=== PATIENT | female | born 1945 | race Caucasian/White ===

== ENCOUNTER 2019-01-03 22:37 | Inpatient (IN) ==
--- NOTE | 2019-01-03 22:45 | ERNOTE ---
Dyspnea - General Presenting Symptoms: shortness of breath Time Seen by Provider: 01/03/19 22:42 Source: EMS Exam Limitations: clinical condition - Immun/Allergies/Home Medications Allergies/Adverse Reactions: Allergies Sulfa (Sulfonamide Antibiotics) Allergy (Unknown, Verified 01/03/19 23:13) - History of Present Illness Narrative: Pt brought in by EMS with respiratory failure. She has been worsening since she got out of a long-term 3 days ago, she states she was not able to go home because she has black mold in her home so she came to stay with a caregiver in town. She was weak and sweaty this afternoon and slipped off the toilet and was unable to get up. She believes she was without oxygen for approx 25-30 minutes. Upon arrival EMS state she had SaO2 of 70%. We applied O2 at 8l oxy mask. Upon receiving ABG's and finding her CO2 elevated we switched to bipap. Severity: moderate Treatment [employer] B[employer]ER: paramedics, oxygen Initiating event: Reports: unknown Frequency of episodes: Reports: frequent episodes Modifying Factors - (Improves): Reports: oxygen, rest Modifying Factors (Worsens): Reports: activity Associated Symptoms-Dyspnea: Reports: sweating, ankle/leg swelling Prior Treatment: Reports: recently seen, treated by physician, recently hospitalized Review of Systems - Review of Systems Constitutional: Present: recent illness, chills, fatigue, malaise EYE: Absent: vision changes ENT: Absent: nose congestion, nasal drainage Respiratory: Present: shortness of breath, orthopnea Cardiology: Present: edema. Absent: chest pain Gastrointestinal/Abdominal: Absent: nausea, vomiting Genitourinary: Absent: frequency, pain Musculoskeletal: Absent: back pain, muscle pain Skin: Absent: rash Neurological: Absent: weakness, numbness Endocrine: Present: excessive sweating, flushing Hematologic/Lymphatic: Absent: easy bruising Medical History (Updated 01/03/19 @ 23:09 by Jenny Sanchez RN) COPD (chronic obstructive pulmonary disease) Diabetes HTN (hypertension) Sleep apnea Family History: Family History (Updated 01/03/19 @ 23:09 by Jenny Sanchez RN) Other Family history non-contributory Social History: Preferred Language Tamaz[place] No Social History Section defined Physical Exam - Physical Exam General Appearance: Present: wd/wn, alert, mild distress Head Exam: Present: normal inspection, no evidence of injury Ears, Nose, Throat: Present: normal ENT inspection Neck: Present: normal inspection, nontender, supple Respiratory: Present: accessory muscle use, decreased breath sounds, crackles - RLL Cardiovascular/Chest: Present: regular rate, rhythm, no murmur Gastrointestinal/Abdominal: Present: normal bowel sounds, nontender, nondistended Extremity Exam: Present: extremity edema - +2 Neurological Exam: Present: alert, oriented, no motor/sensory deficits Skin Exam: Present: warm/dry Progress - Results and Orders Patient's Lab Results:: I have reviewed the patient's lab results. Results and Orders: Laboratory Tests 01/03/19 01/03/19 01/03/19 22:43 23:06 23:10 WBC 18.1 H Hgb 9.3 L Hct 31.3 L Plt Count 307 Neutrophils % 80.8 H D-Dimer pCO2 57.6 H pO2 67.5 L Total CO2 27.1 H ABG pH 7.26 L ABG O2 Sat (Measured) 90.3 L Sodium 141 Potassium 4.4 Chloride 102 Carbon Dioxide 25.9 BUN 27 H Creatinine 1.35 Est GFR (Non-Af Amer) 41 L D Random Glucose 331 H Calcium 8.8 AST 14 ALT 18 L Troponin I 0.069 B-Natriuretic Peptide 833 H Urine Color Urine Appearance Urine pH Ur Specific [place] Urine Glucose (UA) Urine Blood Urine Nitrate Ur Leukocyte Esterase 01/03/19 01/04/19 01/04/19 23:10 00:24 00:36 WBC Hgb Hct Plt Count Neutrophils % D-Dimer 2.16 H pCO2 57.4 H pO2 71.0 L Total CO2 28.4 H ABG pH 7.29 L ABG O2 Sat (Measured) 92.0 L Sodium Potassium Chloride Carbon Dioxide BUN Creatinine Est GFR (Non-Af Amer) Random Glucose Calcium AST ALT Troponin I B-Natriuretic Peptide Urine Color Yellow Urine Appearance Clear Urine pH 5.5 Ur Specific [place] 1.025 Urine Glucose (UA) 500 H Urine Blood Negative Urine Nitrate Negative Ur Leukocyte Esterase Negative - Vital Signs Patient's Vital Signs:: I have reviewed the patient's vital signs. - X-Ray X-Ray #1 X-Ray: chest Interpretation: Interp. by me X-ray Comments: RLL infiltrate and general mild pulmonary edema. - Progress/Reassessment Progress Note-Subjective: 01/03/19 23:45 received notice of patients elevated D-dimer. Pt's GFR is low and dx's of pneumonia and CHF more likely than PE. It would be risky to attempt to take the patient to CT on BIPAP as well. I will hold off on chest CTA for the time being. 01/04/19 01:[address] Gray about admission, he agrees with admission to the [facility]. Departure Clinical Impression: Pneumonia Qualifiers: Pneumonia type: due to unspecified organism Laterality: right Lung location: lower lobe of lung Qualified Code(s): J18.1 - Lobar pneumonia, unspecified organism CHF (congestive heart failure) Qualifiers: Heart failure type: systolic Heart failure chronicity: acute on chronic Qualified Code(s): I50.23 - Acute on chronic systolic (congestive) heart failure COPD (chronic obstructive pulmonary disease) Qualifiers: COPD type: COPD with acute lower respiratory infection Qualified Code(s): J44.0 - Chronic obstructive pulmonary disease with acute lower respiratory infection - Departure Disposition: Still a patient Condition: Fair
[2019-01-03 23:13] LABS: Hematocrit 31.3 % (37.0-47.0); Hemoglobin 9.3 gm/dL (12.5-16.0); Mean Cell Volume 91.5 fl (78-100); Mean Corpuscular Hemoglobin 27.2 pg (27-31); Mean Corpuscular Hgb Conc 29.7 g/dl (32-36); Mean Platelet Volume 9.9 fl (8-12.5); NRBC# 0.1 k/mm3 (0-1); Neutrophil # 14.6 K/mm3 (1.3-6.0); Neutrophil % 80.8 % (42-75.0); Platelet Count 307 K/mm3 (150-450); Red Blood Count 3.42 M/mm3 (4.2-5.4); Red Cell Distribution Width 16.3 % (11.5-14.0); White Blood Count 18.1 K/mm3 (4.0-10.5)
[2019-01-03 23:31] LABS: Troponin I 0.069 ng/mL (0.00-0.10)
[2019-01-03 23:33] LABS: Albumin * 2.9 gm/dl (3.4-5.0); Anion Gap 17.5 mmol/L (6.8-13.8); Bilirubin, Total 0.2 mg/dL (0.0-1.1); Ca. Corrected For Albumin 9.4 mg/dL (8.4-10.2); Calcium * 8.8 mg/dL (7.9-10.9); Carbon Dioxide 25.9 mmol/L (24-32.6); Potassium 4.4 mmol/L (3.4-4.6); Total Protein 7.3 gm/dL (6.2-8.2)
[2019-01-04 00:31] LABS: Urine Bilirubin Negative (NEGATIVE); Urine Blood Negative /ul (NEGATIVE); Urine Ketone Negative (NEGATIVE); Urine Nitrite Negative (NEGATIVE); Urine Protein 30 mg/dL (NEGATIVE); Urine Specific Gravity 1.025 SP.GR. (1.005-1.010); Urine Urobilinogen Normal (NORMAL); Urine pH 5.5 pH (5.0-7.0)
[2019-01-04 00:42] LABS: Urine Appearance Clear (CLEAR); Urine Color Yellow; Urine RBC None Seen /hpf (0-5); Urine WBC None Seen /hpf (0-5)
[2019-01-04 00:43] LABS: Urine Bacteria TRACE; Urine Hyaline Cast 0-5 /LPF
[2019-01-04] MEDS ORDERED: FUROSEMIDE 10 MG/ML VIAL IV ONE ×2 (00:51→08:26)
[2019-01-04] MEDS ORDERED: DEXTROSE 5 % IN WATER 100 ML BAG IV ONE (02:02)
[2019-01-04] MEDS ORDERED: NORMAL SALINE 1,000 ML IV PRN (08:40)
[2019-01-04] MEDS ORDERED: NORMAL SALINE 500 ML IV PRN (08:40)
[2019-01-04] MEDS ORDERED: NORMAL SALINE 500 ML IV ONE (08:42)
[2019-01-04 08:47] LABS: Iron 28 mcg/dL (35-120); Transferrin Sat. (% Sat.) 9 % (15-55)
[2019-01-04] MEDS ORDERED: ENOXAPARIN SODIUM 40 MG/0.4 ML SYRG SC SCH (09:00)
--- NOTE | 2019-01-04 09:27 | HP ---
Chief Complaint - Chief Complaint Date of Service: 01/04/19 Time of Service: 07:30 Chief Complaint: Obtunded mentation, respiratory failure History of Present Illness: Jazlyn Ramirez is a 73 yo morbidly obese (BMI 44.0) [facility]. Admitted through ER at 2:00 this morning for obtunded mentation, respiratory failure with hypercarbia and acidosis, and possibly pneumonia. She has a long-standing history of type 2 diabetes and is insulin-dependent. She also has renal insufficiency with an EGFR of 41 on admission. She is anemic with a hemoglobin of 9.1 g and a leukocytosis of 18,000 on her blood count. Chest x-ray shows cardiomegaly, pulmonary edema, and pneumonia versus atelectasis in the right lower lobe. Her d-dimer was positive at 2.3. Blood sugar on admission was 331. She was placed on BiPAP in the emergency room and she started improving her mentation about 4:00 this morning. By 7 AM she was fully alert and awake and conversant. Repeat blood gases at 730 this morning showed improvement with a pH now 7.353 and a PCO2 had dropped from 57-51. Her PO2 had improved from 61-73. She was not placed on any anticoagulant therapy from ER and CT of the chest has not been done yet. 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 Smoking Status Former smoker Have you smoked in the past 12 No months Do you dip or chew tobacco No Alcohol Use none Drug Use none No Social History Section defined Review Of Systems (GEN) - Review of Systems Generalized/Overall Review: Present: Malaise EENTM: Present: No Symptoms Reported Respiratory: Present: Shortness of Breath, Other - Tachypnea Cardiac: Present: No Symptoms Reported Abdominal: Present: No Symptoms Reported Genitourinary: Present: No Symptoms Reported Musculoskeletal: Present: No Symptoms Reported Neurological: Present: Numbness, Parasthesia, Tingling, Pre-existing Deficit - In her feet and lower legs. She is complaining of a painful tingling in the right lateral thigh area up to the hip. Skin: Present: No Symptoms Reported Endocrine: Present: Other - Long-standing history of insulin-dependent diabetes Immunizations: IMMUNIZATION HX Immunizations Up to Date Yes History of Influenza Vaccine Yes Hx Pneumococcal Vaccination More Information Required Allergies/Adverse Reactions: Allergies Allergy/AdvReac Type Severity Reaction Status Date / Time Sulfa (Sulfonamide Allergy Unknown Verified 01/03/19 23:13 Antibiotics) Exam - Exam Vital Signs: Vital Signs - Last Taken Temp 36.6 C 01/04/19 07:30 Pulse 75 01/04/19 07:30 Resp 20 01/04/19 07:30 BP 127/95 H 01/04/19 07:30 Pulse Ox 98 01/04/19 07:52 Constitutional: Present: Alert, Oriented x3, Cooperative, Well developed, Well nourished, Morbidly obese ENT Exam: Present: normal ENT inspection, hearing grossly normal, pharynx normal, TMs normal Eye Exam: bilateral eye: normal inspection, PERRL, EOMI Neck: Present: non-tender, full range of motion, supple, normal inspection, trachea midline, limited range of motion Back Exam: Present: normal inspection, no CVA tenderness, no vertebral tenderness Breasts: Present: Exam deferred Respiratory: Present: lungs clear, respiratory distress - With tachypnea. She has required CPAP through the night to improve., decreased breath sounds, accessory muscle use, expiration (prolonged), other - Diminished breath sounds in the right lower chest consistent with the radiographic findings of atelectasis versus pneumonia in the right lower lobe. Cardiovascular/Chest: Present: normal peripheral pulses, regular rate, rhythm, no chest tenderness, edema - Pitting in the lower legs. Positive HJR at 45 degrees. Peripheral Pulses: carotid (R): 2+, carotid (L): 2+, radial (R): 2+, radial (L): 2+ Abdomen: Present: Normal bowel sounds, soft, nontender, nondistended, no rebound tenderness, no hepatospenomegaly, no masses, obese /Rectal: Present: Exam deferred Extremity: Present: normal range of motion Skin Exam: Present: pallor Lymphatic: Present: no adenopathy Neurologic: Present: ruffler II-XII nml as tested, sensory deficit - In the lower extremities and feet.. Absent: motor weakness Appearance: Present: appropriate appearance, appropriate insight, neat, impaired recent memory - She is nearly amnestic about the events that happened last night. Her memory is normal this morning however. Eye contact: Present: cooperative, good eye contact, normal speech Thoughts: Present: normal thought pattern, no apparent hallucination Diagnostic Studies: Abnormal Lab Results 01/03/19 01/03/19 01/03/19 Range/Units 22:43 23:06 23:06 WBC 18.1 H (4.0-10.5) K/mm3 RBC 3.42 L (4.2-5.4) M/mm3 Hgb 9.3 L (12.5-16.0) gm/dL Hct 31.3 L (37.0-47.0) % MCHC 29.7 L (32-36) g/dl RDW 16.3 H (11.5-14.0) % Immature Gran % (Auto) 1.80 H (0.001-0.429) % Immature Gran # (Auto) 0.33 H (0.000-0.0310) K/mm3 Neutrophils % 80.8 H (42-75.0) % Lymphocytes % 8.2 L (20-51) % Neutrophils # 14.6 H (1.3-6.0) K/mm3 Lymphocytes # 1.49 L (1.5-3.5) k/mm3 Monocytes # 1.5 H (0.0-1.0) k/mm3 Percent Retic (0.4-1.8) % Immature Retic Fraction (3.0-15.9) % Retic Hgb Content (29-35) pg D-Dimer (0.19-0.49) ug/mL pCO2 57.6 H (32.0-45.0) mmHg pO2 67.5 L (83.0-108.0) mmHg Total CO2 27.1 H (19.0-24.0) mmol/L Base Excess -2.2 L (-2.0-3.0) mmol/L ABG pH 7.26 L (7.35-7.45) ABG O2 Sat (Measured) 90.3 L (94.0-98.0) % Plasma Sodium (130-142) mmol/L Anion Gap (6.8-13.8) mmol/L BUN (3-23) mg/dL Est GFR (Non-Af Amer) (60-130) mL/min Random Glucose (70-110) mg/dL Lactic Acid, Venous 3.7 H* (0.4-2.0) mmol/L Iron (35-120) mcg/dL Transferrin % Sat (15-55) % ALT (19-67) U/L B-Natriuretic Peptide (5-325) pg/mL Albumin (3.4-5.0) gm/dl Urine Protein (NEGATIVE) mg/dL Urine Glucose (UA) (NEGATIVE) mg/dL Hyaline Casts (NONE) /LPF 01/03/19 01/03/19 01/03/19 Range/Units 23:10 23:10 23:10 WBC (4.0-10.5) K/mm3 RBC (4.2-5.4) M/mm3 Hgb (12.5-16.0) gm/dL Hct (37.0-47.0) % MCHC (32-36) g/dl RDW (11.5-14.0) % Immature Gran % (Auto) (0.001-0.429) % Immature Gran # (Auto) (0.000-0.0310) K/mm3 Neutrophils % (42-75.0) % Lymphocytes % (20-51) % Neutrophils # (1.3-6.0) K/mm3 Lymphocytes # (1.5-3.5) k/mm3 Monocytes # (0.0-1.0) k/mm3 Percent Retic (0.4-1.8) % Immature Retic Fraction (3.0-15.9) % Retic Hgb Content (29-35) pg D-Dimer 2.16 H (0.19-0.49) ug/mL pCO2 (32.0-45.0) mmHg pO2 (83.0-108.0) mmHg Total CO2 (19.0-24.0) mmol/L Base Excess (-2.0-3.0) mmol/L ABG pH (7.35-7.45) ABG O2 Sat (Measured) (94.0-98.0) % Plasma Sodium 145 H (130-142) mmol/L Anion Gap 17.5 H (6.8-13.8) mmol/L BUN 27 H (3-23) mg/dL Est GFR (Non-Af Amer) 41 L D (60-130) mL/min Random Glucose 331 H (70-110) mg/dL Lactic Acid, Venous (0.4-2.0) mmol/L Iron 28 L (35-120) mcg/dL Transferrin % Sat 9 L (15-55) % ALT 18 L (19-67) U/L B-Natriuretic Peptide 833 H (5-325) pg/mL Albumin 2.9 L (3.4-5.0) gm/dl Urine Protein (NEGATIVE) mg/dL Urine Glucose (UA) (NEGATIVE) mg/dL Hyaline Casts (NONE) /LPF 01/04/19 01/04/19 01/04/19 Range/Units 00:24 00:36 07:35 WBC (4.0-10.5) K/mm3 RBC (4.2-5.4) M/mm3 Hgb (12.5-16.0) gm/dL Hct (37.0-47.0) % MCHC (32-36) g/dl RDW (11.5-14.0) % Immature Gran % (Auto) (0.001-0.429) % Immature Gran # (Auto) (0.000-0.0310) K/mm3 Neutrophils % (42-75.0) % Lymphocytes % (20-51) % Neutrophils # (1.3-6.0) K/mm3 Lymphocytes # (1.5-3.5) k/mm3 Monocytes # (0.0-1.0) k/mm3 Percent Retic (0.4-1.8) % Immature Retic Fraction (3.0-15.9) % Retic Hgb Content (29-35) pg D-Dimer (0.19-0.49) ug/mL pCO2 57.4 H 51.6 H (32.0-45.0) mmHg pO2 71.0 L (83.0-108.0) mmHg Total CO2 28.4 H 29.6 H (19.0-24.0) mmol/L Base Excess (-2.0-3.0) mmol/L ABG pH 7.29 L (7.35-7.45) ABG O2 Sat (Measured) 92.0 L (94.0-98.0) % Plasma Sodium (130-142) mmol/L Anion Gap (6.8-13.8) mmol/L BUN (3-23) mg/dL Est GFR (Non-Af Amer) (60-130) mL/min Random Glucose (70-110) mg/dL Lactic Acid, Venous (0.4-2.0) mmol/L Iron (35-120) mcg/dL Transferrin % Sat (15-55) % ALT (19-67) U/L B-Natriuretic Peptide (5-325) pg/mL Albumin (3.4-5.0) gm/dl Urine Protein 30 H (NEGATIVE) mg/dL Urine Glucose (UA) 500 H (NEGATIVE) mg/dL Hyaline Casts 0-5 H (NONE) /LPF 01/04/19 Range/Units 08:38 WBC (4.0-10.5) K/mm3 RBC (4.2-5.4) M/mm3 Hgb (12.5-16.0) gm/dL Hct (37.0-47.0) % MCHC (32-36) g/dl RDW (11.5-14.0) % Immature Gran % (Auto) (0.001-0.429) % Immature Gran # (Auto) (0.000-0.0310) K/mm3 Neutrophils % (42-75.0) % Lymphocytes % (20-51) % Neutrophils # (1.3-6.0) K/mm3 Lymphocytes # (1.5-3.5) k/mm3 Monocytes # (0.0-1.0) k/mm3 Percent Retic 2.4 H (0.4-1.8) % Immature Retic Fraction 33.8 H (3.0-15.9) % Retic Hgb Content 27.6 L (29-35) pg D-Dimer (0.19-0.49) ug/mL pCO2 (32.0-45.0) mmHg pO2 (83.0-108.0) mmHg Total CO2 (19.0-24.0) mmol/L Base Excess (-2.0-3.0) mmol/L ABG pH (7.35-7.45) ABG O2 Sat (Measured) (94.0-98.0) % Plasma Sodium (130-142) mmol/L Anion Gap (6.8-13.8) mmol/L BUN (3-23) mg/dL Est GFR (Non-Af Amer) (60-130) mL/min Random Glucose (70-110) mg/dL Lactic Acid, Venous (0.4-2.0) mmol/L Iron (35-120) mcg/dL Transferrin % Sat (15-55) % ALT (19-67) U/L B-Natriuretic Peptide (5-325) pg/mL Albumin (3.4-5.0) gm/dl Urine Protein (NEGATIVE) mg/dL Urine Glucose (UA) (NEGATIVE) mg/dL Hyaline Casts (NONE) /LPF Laboratory Results WBC 18.1 K/mm3 (4.0-10.5) H 01/03/19 22:43 RBC 3.42 M/mm3 (4.2-5.4) L 01/03/19 22:43 Hgb 9.3 gm/dL (12.5-16.0) L 01/03/19 22:43 Hct 31.3 % (37.0-47.0) L 01/03/19 22:43 MCV 91.5 fl (78-100) 01/03/19 22:43 MCH 27.2 pg (27-31) 01/03/19 22:43 MCHC 29.7 g/dl (32-36) L 01/03/19 22:43 RDW 16.3 % (11.5-14.0) H 01/03/19 22:43 Plt Count 307 K/mm3 (150-450) 01/03/19 22:43 MPV 9.9 fl (8-12.5) 01/03/19 22:43 Immature Gran % (Auto) 1.80 % (0.001-0.429) H 01/03/19 22:43 Immature Gran # (Auto) 0.33 K/mm3 (0.000-0.0310) H 01/03/19 22:43 80.8 % (42-75.0) H 01/03/19 22:43 8.2 % (20-51) L 01/03/19 22:43 8.2 % (0.0-9) 01/03/19 22:43 0.7 % (0.0-3.0) 01/03/19 22:43 0.3 % (0.0-1.0) 01/03/19 22:43 Nucleated RBC % 0.1 k/mm3 (0-1) 01/03/19 22:43 14.6 K/mm3 (1.3-6.0) H 01/03/19 22:43 1.49 k/mm3 (1.5-3.5) L 01/03/19 22:43 1.5 k/mm3 (0.0-1.0) H 01/03/19 22:43 0.1 k/mm3 (0.0-0.7) 01/03/19 22:43 Absolute Basophils 0.1 k/mm3 (0.0-0.1) 01/03/19 22:43 Absolute Retic 0.0874 01/04/19 08:38 Percent Retic 2.4 % (0.4-1.8) H 01/04/19 08:38 Immature Retic Fraction 33.8 % (3.0-15.9) H 01/04/19 08:38 Retic Hgb Content 27.6 pg (29-35) L 01/04/19 08:38 2.16 ug/mL (0.19-0.49) H 01/03/19 23:10 pCO2 51.6 mmHg (32.0-45.0) H 01/04/19 07:35 pO2 84.8 mmHg (83.0-108.0) 01/04/19 07:35 HCO3 28.0 mmol/L (21.0-28.0) 01/04/19 07:35 Total CO2 29.6 mmol/L (19.0-24.0) H 01/04/19 07:35 Base Excess 1.8 mmol/L (-2.0-3.0) 01/04/19 07:35 ABG pH 7.35 (7.35-7.45) 01/04/19 07:35 ABG O2 Sat (Measured) 95.8 % (94.0-98.0) 01/04/19 07:35 Sodium 141 mmol/L (132-142) 01/03/19 23:10 145 mmol/L (130-142) H 01/03/19 23:10 Potassium 4.4 mmol/L (3.4-4.6) 01/03/19 23:10 Chloride 102 mmol/L (97-106) 01/03/19 23:10 Carbon Dioxide 25.9 mmol/L (24-32.6) 01/03/19 23:10 17.5 mmol/L (6.8-13.8) H 01/03/19 23:10 BUN 27 mg/dL (3-23) H 01/03/19 23:10 1.35 mg/dL (0.4-1.4) 01/03/19 23:10 Est GFR (Non-Af Amer) 41 mL/min (60-130) L D 01/03/19 23:10 20.0 (9.0-21.6) 01/03/19 23:10 331 mg/dL (70-110) H 01/03/19 23:10 1.2 mmol/L (0.4-2.0) 01/04/19 04:37 Calcium 8.8 mg/dL (7.9-10.9) 01/03/19 23:10 Calcium Adj for Albumin 9.4 mg/dL (8.4-10.2) 01/03/19 23:10 Iron 28 mcg/dL (35-120) L 01/03/19 23:10 TIBC 309 mcg/dL (260-445) 01/03/19 23:10 Transferrin % Sat 9 % (15-55) L 01/03/19 23:10 0.2 mg/dL (0.0-1.1) 01/03/19 23:10 AST 14 U/L (0-48) 01/03/19 23:10 ALT 18 U/L (19-67) L 01/03/19 23:10 85 U/L (50-170) 01/03/19 23:10 0.069 ng/mL (0.00-0.10) 01/03/19 23:10 B-Natriuretic Peptide 833 pg/mL (5-325) H 01/03/19 23:10 7.3 gm/dL (6.2-8.2) 01/03/19 23:10 2.9 gm/dl (3.4-5.0) L 01/03/19 23:10 Yellow 01/04/19 00:24 Clear (CLEAR) 01/04/19 00:24 5.5 pH (5.0-7.0) 01/04/19 00:24 Ur Specific [place] 1.025 SP.GR. (1.005-1.010) 01/04/19 00:24 30 mg/dL (NEGATIVE) H 01/04/19 00:24 500 mg/dL (NEGATIVE) H 01/04/19 00:24 Negative mg/dL (NEGATIVE) 01/04/19 00:24 Negative /ul (NEGATIVE) 01/04/19:24 Negative (NEGATIVE) 01/04/19:24 Negative mg/dl (NEGATIVE) 01/04/19 00:24 Prot Sulfosalicylic Acd 1+ mg/dL (0) 01/04/19:24 Normal EU/dl (NORMAL) 01/04/19:24 Ur Leukocyte Esterase Negative /ul (NEGATIVE) 01/04/19 00:24 None seen /hpf (0-5) 01/04/19 00:24 None seen /hpf (0-5) 01/04/19 00:24 Ur Epithelial Cells Trace /hpf (0-5) 01/04/19:24 Trace (NONE) 01/04/19 00:24 Hyaline Casts 0-5 /LPF (NONE) H 01/04/19 00:24 No culture indicated 01/04/19 00:24 Assessment/Plan - Narrative Narrative: The cause of her renal insufficiency which is CKD stage IIIb at EGFR of 41 is most likely from her uncontrolled diabetes. The cause of her anemia is probably from the renal insufficiency. Her MCV is normal but her RDW is elevated. Iron studies are pending. Because she has a positive d-dimer and acute respiratory failure PE must be ruled out. She is not on any anticoagulants therapy. I have ordered a CTA of the chest to rule out PE and also to evaluate the atelectasis in the right lower lung to see if pneumonia is present. She has cardiomegaly on her chest x-ray and so an echocardiogram is ordered as it may relate to some of her respiratory failure. She will be started on Lovenox therapeutic dosing initially at 40 mg twice daily. Once PE is ruled out then I will reduce it to prophylaxis only. She will be placed on nasal cannula O2 at 3 L and then I will have a heart line put in by anesthesia and recheck blood gases early this afternoon. I will start her on Levemir 20 units subcu and NovoLog 7 units before meals meals. She takes 50 units of Lantus and metformin usually. Anabelle was recently in a assisted in [place] and then left there to come live with a friend here in [place]. She developed respiratory distress last night and came to our hospital. Her fishing floats assembler is Dr. Stuart Davidson and she has a PCP in [place] as well. I will notify them of her status once I have more information. - Assessment/Plan (1) Acute respiratory failure with hypercapnia Problem: Acute (2) Anemia Problem: Acute Qualifiers: Anemia type: unspecified type Qualified Code(s): D64.9 - Anemia, unspecified (3) Type 2 diabetes mellitus Problem: Chronic Qualifiers: Diabetes mellitus intermediate school teacher insulin use: with senior living use Diabetes syeda litus complication status: with kidney complications Diabetes mellitus complication detail: with chronic kidney disease Chronic kidney disease stage: stage 3 (moderate) Qualified Code(s): E11.22 - Type 2 diabetes mellitus with diabetic chronic kidney disease; N18.3 - Chronic kidney disease, stage 3 (modera te); Z79.4 - long term care social worker (current) use of insulin (4) Pulmonary embolus Problem: Suspected Qualifiers: Pulmonary embolism type: unspecified Chronicity: acute Acute cor pulmonale presence: with acute cor pulmonale Qualified Code(s): I26.09 - Other pulmonary embolism with acute cor pulmonale (5) Cardiomegaly Problem: Acute (6) Morbid obesity with BMI of 40.0-44.9, adult Problem: Acute (7) Pneumonia Problem: Suspected Qualifiers: Pneumonia type: due to unspecified organism Laterality: right Lung location: lower lobe of lung Qualified Code(s): J18.1 - Lobar pneumonia, unspecified organism (8) CHF (congestive heart failure) Problem: Acute Qualifiers: Heart failure type: systolic Heart failure chronicity: acute on chronic Qualified Code(s): I50.23 - Acute on chronic systolic (congestive) heart failure (9) COPD (chronic obstructive pulmonary disease) Problem: Chronic Qualifiers: COPD type: COPD with acute lower respiratory infection Qualified Code(s): J44.0 - Chronic obstructive pulmonary disease with acute lower respiratory infection
[2019-01-04] MEDS: INSULIN DETEMIR 100 UNITS/ML VIAL SC SCH (10:13)
[2019-01-04] MEDS: INSULIN ASPART 100 UNITS/ML VIAL SC SCH ×2 (12:22→17:20)
[2019-01-04] MEDS ORDERED: ALBUTEROL SULFATE/IPRATROPIUM 3 ML NEBU IH PRN (13:13)
[2019-01-04] MEDS: TIOTROPIUM BROMIDE 5 CAP INHALER IH SCH (13:53)
[2019-01-04] MEDS: amLODIPine BESYLATE 5 MG TABLET PO SCH (13:55)
[2019-01-04] MEDS: GABAPENTIN 300 MG CAPSULE PO SCH (16:04)
[2019-01-04] MEDS: ACETAMINOPHEN 500 MG TABLET PO PRN (18:37)
[2019-01-04] MEDS: ALPRAZolam 1 MG TABLET PO PRN (20:00)
[2019-01-04] MEDS: traZODone HCL 50 MG TABLET PO SCH (20:00)
[2019-01-05 05:33] LABS: Hematocrit 31.9 % (37.0-47.0); Hemoglobin 9.6 gm/dL (12.5-16.0); Mean Cell Volume 89.4 fl (78-100); Mean Corpuscular Hemoglobin 26.9 pg (27-31); Mean Corpuscular Hgb Conc 30.1 g/dl (32-36); Mean Platelet Volume 9.6 fl (8-12.5); Neutrophil # 7.6 K/mm3 (1.3-6.0); Neutrophil % 74.4 % (42-75.0); Platelet Count 276 K/mm3 (150-450); Red Blood Count 3.57 M/mm3 (4.2-5.4); Red Cell Distribution Width 16.1 % (11.5-14.0); White Blood Count 10.2 K/mm3 (4.0-10.5)
[2019-01-05 05:48] LABS: Albumin * 2.7 gm/dl (3.4-5.0); Anion Gap 10.9 mmol/L (6.8-13.8); BUN/Creatinine Ratio 17.8 (9.0-21.6); Bilirubin, Total 0.3 mg/dL (0.0-1.1); Ca. Corrected For Albumin 9.4 mg/dL (8.4-10.2); Calcium * 8.7 mg/dL (7.9-10.9); Carbon Dioxide 32.5 mmol/L (24-32.6); Potassium 3.4 mmol/L (3.4-4.6)
[2019-01-05] MEDS: PANTOPRAZOLE SODIUM 40 MG TABLET.EC PO SCH (07:27)
[2019-01-05] MEDS: LEVOTHYROXINE SODIUM 112 MCG TABLET PO SCH (07:27)
[2019-01-05] MEDS: INSULIN ASPART 100 UNITS/ML VIAL SC SCH ×3 (07:27→17:19)
--- NOTE | 2019-01-05 09:14 | ECHO ---
This report is available in the EMR
[2019-01-05] MEDS: ESCITALOPRAM OXALATE 10 MG TAB PO SCH (09:42)
[2019-01-05] MEDS: GABAPENTIN 300 MG CAPSULE PO SCH ×3 (09:43→17:19)
[2019-01-05] MEDS: amLODIPine BESYLATE 5 MG TABLET PO SCH (09:43)
[2019-01-05] MEDS: ENOXAPARIN SODIUM 40 MG/0.4 ML SYRG SC SCH (09:44)
[2019-01-05] MEDS: INSULIN DETEMIR 100 UNITS/ML VIAL SC SCH ×2 (09:44→10:47)
[2019-01-05] MEDS: TIOTROPIUM BROMIDE 5 CAP INHALER IH SCH (09:46)
--- NOTE | 2019-01-05 10:10 | PN ---
Subjective - Date and Time Seen Date: 01/05/19 Time: 08:30 Subjective Narrative: Jazlyn Ramirez has been in SCU since admission. She had an uneventful night last night. She is feeling much better this morning and feels rested. She has no complaints of shortness of breath. Nursing has no concerns through the night. Fingerstick blood sugars have been in the 200-225 range. The lab blood sugar this morning was 175 at 06 100. She has lost about 2 kg since admission. She has been incontinent most of the time with her bladder. Since she has had a stable night and doing well this morning I will move her out to general medical floor where I intend to keep her today and tonight and probably discharge tomorrow morning. Objective - Review of Systems Generalized/Overall Review: Reports: No Symptoms Reported EENTM: Reports: No Symptoms Reported Respiratory: Reports: Shortness of Breath Cardiac: Reports: No Symptoms Reported Abdominal: Reports: No Symptoms Reported Genitourinary Symptoms: Reports: Frequency, Incontinent, Nocturia Musculoskeletal Complaints: Reports: No Symptoms Reported Neurological: Reports: No Symptoms Reported Skin: Reports: No Symptoms Reported Endocrine: Reports: No Symptoms Reported Misc: All systems neg except as marked - Vitals Vitals: Last Vital Signs Temp 36.7 C 01/05/19 07:10 Pulse 79 01/05/19 09:43 Resp 18 01/05/19 07:10 BP 120/62 01/05/19 09:43 Pulse Ox 95 01/05/19 07:10 - Abnormal Lab Findings Abnormal Lab Findings: Abnormal Lab Results 01/05/19 01/05/19 Range/Units 05:25 05:25 RBC 3.57 L (4.2-5.4) M/mm3 Hgb 9.6 L (12.5-16.0) gm/dL Hct 31.9 L (37.0-47.0) % MCH 26.9 L (27-31) pg MCHC 30.1 L (32-36) g/dl RDW 16.1 H (11.5-14.0) % Immature Gran % (Auto) 0.90 H (0.001-0.429) % Immature Gran # (Auto) 0.09 H (0.000-0.0310) K/mm3 Lymphocytes % 13.3 L (20-51) % Monocytes % 9.8 H (0.0-9) % Neutrophils # 7.6 H (1.3-6.0) K/mm3 Lymphocytes # 1.35 L (1.5-3.5) k/mm3 BUN 24 H (3-23) mg/dL Est GFR (Non-Af Amer) 41 L (60-130) mL/min Random Glucose 175 H D (70-110) mg/dL ALT 18 L (19-67) U/L Albumin 2.7 L (3.4-5.0) gm/dl - EKG/Xray Findings EKG: NSR, rhythm, no ST T wave changes EKG read: Reviewed by me Interpretation: Reviewed by me - Exam Constitutional: Present: Alert, Oriented x3, Cooperative, Well developed, Well nourished, No distress ENT Exam: Present: normal ENT inspection, hearing grossly normal, pharynx normal Neck: Present: non-tender, full range of motion, supple Breasts: Present: Exam deferred Respiratory: Present: chest non-tender, lungs clear Cardiovascular/Chest: Present: normal peripheral pulses, regular rate, rhythm, no chest tenderness, no edema, no gallop, no JVD, no murmur Abdomen: Present: Normal bowel sounds, soft, nontender, nondistended, no rebound tenderness, no hepatospenomegaly, no masses, obese /Rectal: Present: Exam deferred Extremity: Present: normal range of motion, non-tender, no pedal edema Skin Exam: Present: normal color, warm/dry, no cyanosis Lymphatic: Present: no adenopathy Neurologic: Present: news broadcaster II-XII nml as tested, no motor/sensory deficits, alert, normal mood/affect, oriented x 3 Appearance: Present: appropriate appearance, appropriate insight, neat, no memory impairment Eye contact: Present: cooperative, good eye contact, normal speech Thoughts: Present: normal thought pattern, no apparent hallucination Assessment/Plan Plan Narrative: 1. Move to general medical floor out of SCU. 2. DC IV fluids and saline lock IV 3. Limit oral fluid intake to less than 2 L/day 4. Start p.o. Lasix 40 mg daily at 1300 hrs. today 5. Have physical therapy evaluate her ability and balance 6. Continue cardiac monitoring. 7. I discussed her laboratory and imaging findings. There is no pulmonary embolus and no pneumonia. I believe the acute respiratory failure event came from a combination of her underlying COPD and her congestive heart failure. That has resolved with diuresis. I have suggested she will need to fluid restrict some starting at less than 2 L/day when she goes home and will start th at here today. 8. I have increased her insulin to 30 units subcu Levemir daily and increased her Humalog to 10 units before meals meals. - Problems/Diagnosis (1) Acute respiratory failure with hypercapnia Problem: Acute (2) Anemia Problem: Chronic Qualifiers: Anemia type: due to chronic kidney disease Chronic kidney disease stage: stage 3 (moderate) Qualified Code(s): N18.3 - Chronic kidney disease, stage 3 (moderate); D63.1 - Anemia in chronic kidney disease (3) Type 2 diabetes mellitus Problem: Chronic Qualifiers: Diabetes mellitus fdc insulin use: with fdc use Diabetes mellitus complication status: with kidney complications Diabetes mellitus complication detail: with chronic kidney disease Chronic kidney disease stage: stage 3 (moderate) Qualified Code(s): E11.22 - Type 2 diabetes mellitus with diabetic chronic kidney disease; N18.3 - Chronic kidney disease, stage 3 (moderate); Z79.4 - intermediate card tender (current) use of insulin (4) Pulmonary embolus Problem: Ruled-out Qualifiers: Pulmonary embolism type: unspecified Chronicity: acute Acute cor pulmonale presence: with acute cor pulmonale Qualified Code(s): I26.09 - Other pulmonary embolism with acute cor pulmonale (5) Cardiomegaly Problem: Chronic (6) Morbid obesity with BMI of 40.0-44.9, adult Problem: Chronic (7) Pneumonia Problem: Ruled-out Qualifiers: Pneumonia type: due to unspecified organism Laterality: right Lung location: lower lobe of lung Qualified Code(s): J18.1 - Lobar pneumonia, unspecified organism (8) CHF (congestive heart failure) Problem: Acute Qualifiers: Heart failure type: systolic Heart failure chronicity: acute on chronic Qualified Code(s): I50.23 - Acute on chronic systolic (congestive) heart failure (9) COPD (chronic obstructive pulmonary disease) Problem: Chronic Qualifiers: COPD type: COPD with acute lower respiratory infection Qualified Code(s): J44.0 - Chronic obstructive pulmonary disease with acute lower respiratory infection
[2019-01-05] MEDS: ACETAMINOPHEN 500 MG TABLET PO PRN ×2 (10:34→21:11)
[2019-01-05] MEDS: FUROSEMIDE 40 MG TABLET PO SCH (12:57)
[2019-01-05] MEDS: traZODone HCL 50 MG TABLET PO SCH (21:12)
[2019-01-05] MEDS: ALPRAZolam 1 MG TABLET PO PRN (21:21)
[2019-01-06 05:47] LABS: Albumin * 2.5 gm/dl (3.4-5.0); Anion Gap 11.6 mmol/L (6.8-13.8); BUN/Creatinine Ratio 21.5 (9.0-21.6); Bilirubin, Total 0.2 mg/dL (0.0-1.1); Ca. Corrected For Albumin 9.4 mg/dL (8.4-10.2); Calcium * 8.5 mg/dL (7.9-10.9); Carbon Dioxide 31.9 mmol/L (24-32.6); Potassium 3.5 mmol/L (3.4-4.6); Total Protein 6.8 gm/dL (6.2-8.2)
[2019-01-06 06:04] LABS: Hematocrit 29.6 % (37.0-47.0); Hemoglobin 8.9 gm/dL (12.5-16.0); Mean Cell Volume 89.4 fl (78-100); Mean Corpuscular Hemoglobin 26.9 pg (27-31); Mean Corpuscular Hgb Conc 30.1 g/dl (32-36); Mean Platelet Volume 10.3 fl (8-12.5); Neutrophil # 6.4 K/mm3 (1.3-6.0); Neutrophil % 70.6 % (42-75.0); Platelet Count 300 K/mm3 (150-450); Red Blood Count 3.31 M/mm3 (4.2-5.4)
[2019-01-06] MEDS: LEVOTHYROXINE SODIUM 112 MCG TABLET PO SCH (07:14)
[2019-01-06] MEDS: PANTOPRAZOLE SODIUM 40 MG TABLET.EC PO SCH (07:14)
[2019-01-06] MEDS: INSULIN ASPART 100 UNITS/ML VIAL SC SCH (07:15)
[2019-01-06] MEDS: FUROSEMIDE 40 MG TABLET PO SCH (08:07)
[2019-01-06] MEDS: ESCITALOPRAM OXALATE 10 MG TAB PO SCH (08:07)
[2019-01-06] MEDS: GABAPENTIN 300 MG CAPSULE PO SCH (08:07)
[2019-01-06] MEDS: amLODIPine BESYLATE 5 MG TABLET PO SCH (08:08)
[2019-01-06] MEDS: ENOXAPARIN SODIUM 40 MG/0.4 ML SYRG SC SCH (08:08)
[2019-01-06] MEDS: TIOTROPIUM BROMIDE 5 CAP INHALER IH SCH (08:09)
[2019-01-06] MEDS: INSULIN DETEMIR 100 UNITS/ML VIAL SC SCH (08:09)
--- NOTE | 2019-01-06 09:19 | DS ---
(1) Acute respiratory failure with hypercapnia Problem: Acute (2) Anemia Problem: Chronic Qualifiers: Anemia type: due to chronic kidney disease Chronic kidney disease stage: stage 3 (moderate) Qualified Code(s): N18.3 - Chronic kidney disease, stage 3 (moderate); D63.1 - Anemia in chronic kidney disease (3) Type 2 diabetes mellitus Problem: Chronic Qualifiers: Diabetes mellitus jail insulin use: with manager intermediate use Diabetes mellitus complication status: with kidney complications Diabetes mellitus complication detail: with chronic kidney disease Chronic kidney disease stage: stage 3 (moderate) Qualified Code(s): E11.22 - Type 2 diabetes mellitus with diabetic chronic kidney disease; N18.3 - Chronic kidney disease, stage 3 (moderate); Z79.4 - USP (current) use of insulin (4) Pulmonary embolus Problem: Ruled-out Qualifiers: Pulmonary embolism type: unspecified Chronicity: acute Acute cor pulmonale presence: with acute cor pulmonale Qualified Code(s): I26.09 - Other pulmonary embolism with acute cor pulmonale (5) Cardiomegaly Problem: Chronic (6) Morbid obesity with BMI of 40.0-44.9, adult Problem: Chronic (7) Pneumonia Problem: Ruled-out Qualifiers: Pneumonia type: due to unspecified organism Laterality: right Lung location: lower lobe of lung Qualified Code(s): J18.1 - Lobar pneumonia, unspecified organism (8) CHF (congestive heart failure) Problem: Resolved Qualifiers: Heart failure type: systolic Heart failure chronicity: acute on chronic Qualified Code(s): I50.23 - Acute on chronic systolic (congestive) heart failure (9) COPD (chronic obstructive pulmonary disease) Problem: Chronic Qualifiers: COPD type: COPD with acute lower respiratory infection Qualified Code(s): J44.0 - Chronic obstructive pulmonary disease with acute lower respiratory infection Description of Stay: Jazlyn Ramirez is a 73-year-old female admitted through ER with acute respiratory failure and hypercarbia. Her blood gases showed her to be in respiratory acidosis. She has chronic underlying COPD. She was evaluated for pulmonary embolus. The d-dimer was elevated at 2.[address] chest arteriogram with PE protocol was negative for PE or pneumonia. ER thought she may have a right lower lobe pneumonia. There was some atelectasis there but no pneumonia present. She was diuresed with IV furosemide and gave that fluids easily. Within 3 hours of admission she was breathing much more comfortably. Repeat blood gases showed the CO2 had dropped from 59-51. They have not been repeated since then. I have fluid restricted her to 2 L of fluid per day and c hanged her to p.o. Lasix yesterday. She has had an uneventful night last night and the night before and she is feeling much better and would like to be discharged. I concur that it is time to let her go home. She will follow-up with her biologist Dr. Plascencia and her primary care doctor in [place]. Having ruled out pulmonary embolus and pneumonia I believe what has happened is that she became fluid overloaded and went into some congestive heart failure. We could see pulmonary edema on her admission chest x-ray and she had bibasilar crackles, distended neck veins, and positive HJR. With diuresis the neck veins are no longer distended and her HJR is negative and there are no crackles at this time. I believe she should have another set of blood gases done to establish whether baseline is once she is fully recovered. Perhaps in a week or so that could be done in Dr. Carrillo's office. There have been no cardiac events during this stay. Procedures Performed: none Results and Findings: Pending Mircobiology Results 01/04/19 01:56 Blood Blood Culture - Preliminary NO GROWTH AFTER 48 HOURS 01/04/19 01:15 Blood Blood Culture - Preliminary NO GROWTH AFTER 48 HOURS Lab Pending Results 01/03/19 22:43: WBC 18.1 H, RBC 3.42 L, Hgb 9.3 L, Hct 31.3 L, MCV 91.5, MCH 27.2, MCHC 29.7 L, RDW 16.3 H, Plt Count 307, MPV 9.9, Immature Gran % (Auto) 1.80 H, Immature Gran # (Auto) 0.33 H, Neutrophils % 80.8 H, Lymphocytes % 8.2 L, Monocytes % 8.2, Eosinophils % 0.7, Basophils % 0.3, Nucleated RBC % 0.1, Neutrophils # 14.6 H, Lymphocytes # 1.49 L, Monocytes # 1.5 H, Eosinophils # 0.1, Absolute Basophils 0.1 01/03/19 23:06: pCO2 57.6 H, pO2 67.5 L, HCO3 25.3, Total CO2 27.1 H, Base Excess -2.2 L, ABG pH 7.26 L, ABG O2 Sat (Measured) 90.3 L 01/03/19 23:06: Lactic Acid, Venous 3.7 H* 01/03/19 23:10: Sodium 141, Plasma Sodium 145 H, Potassium 4.4, Chloride 102, Carbon Dioxide 25.9, Anion Gap 17.5 H, BUN 27 H, Creatinine 1.35, Est GFR (Non- Af Amer) 41 L D, BUN/Creatinine Ratio 20.0, Random Glucose 331 H, Calcium 8.8, Calcium Adj for Albumin 9.4, Total Bilirubin 0.2, AST 14, ALT 18 L, Alkaline Phosphatase 85, Troponin I 0.069, B-Natriuretic Peptide 833 H, Total Protein 7.3, Albumin 2.9 L 01/03/19 23:10: D-Dimer 2.16 H 01/03/19 23:10: Iron 28 L, TIBC 309, Transferrin % Sat 9 L 01/03/19 23:10: Ferritin 66 01/04/19 00:24: Urine Color Yellow, Urine Appearance Clear, Urine pH 5.5, Ur Specific [place] 1.025, Urine Protein 30 H, Urine Glucose (UA) 500 H, Urine Ketones Negative, Urine Blood Negative, Urine Nitrate Negative, Urine Bilirubin Negative, Prot Sulfosalicylic Acd 1+, Urine Urobilinogen Normal, Ur Leukocyte Esterase Negative, Urine RBC None seen, Urine WBC None seen, Ur Epithelial Cells Trace, Urine Bacteria Trace, Hyaline Casts 0-5 H, Urine Culture Comments No culture indicated 01/04/19 00:36: pCO2 57.4 H, pO2 71.0 L, HCO3 26.7, Total CO2 28.4 H, Base Excess -0.7, ABG pH 7.29 L, ABG O2 Sat (Measured) 92.0 L 01/04/19 04:37: Lactic Acid, Venous 1.2 01/04/19 07:35: pCO2 51.6 H, pO2 84.8, HCO3 28.0, Total CO2 29.6 H, Base Excess 1.8, ABG pH 7.35, ABG O2 Sat (Measured) 95.8 01/04/19 08:38: Absolute Retic 0.0874, Percent Retic 2.4 H, Immature Retic Fraction 33.8 H, Retic Hgb Content 27.6 L 01/05/19 05:25: WBC 10.2 D, RBC 3.57 L, Hgb 9.6 L, Hct 31.9 L, MCV 89.4, MCH 26.9 L, MCHC 30.1 L, RDW 16.1 H, Plt Count 276, MPV 9.6, Immature Gran % (Auto) 0.90 H, Immature Gran # (Auto) 0.09 H, Neutrophils % 74.4, Lymphocytes % 13.3 L, Monocytes % 9.8 H, Eosinophils % 1.3, Basophils % 0.3, Nucleated RBC % 0.0, Neutrophils # 7.6 H, Lymphocytes # 1.35 L, Monocytes # 1.0, Eosinophils # 0.1, Absolute Basophils 0.0 01/05/19 05:25: Sodium 139, Plasma Sodium 140, Potassium 3.4 D, Chloride 99, Carbon Dioxide 32.5, Anion Gap 10.9, BUN 24 H, Creatinine 1.35, Est GFR (Non-Af Amer) 41 L, BUN/Creatinine Ratio 17.8, Random Glucose 175 H D, Calcium 8.7, Calcium Adj for Albumin 9.4, Total Bilirubin 0.3, AST 22, ALT 18 L, Alkaline Phosphatase 81, Total Protein 7.0, Albumin 2.7 L 01/06/19 05:31: WBC 9.0, RBC 3.31 L, Hgb 8.9 L, Hct 29.6 L, MCV 89.4, MCH 26.9 L, MCHC 30.1 L, RDW 16.0 H, Plt Count 300, MPV 10.3, Immature Gran % (Auto) 0.80 H, Immature Gran # (Auto) 0.07 H, Neutrophils % 70.6, Lymphocytes % 16.6 L, Monocytes % 9.9 H, Eosinophils % 1.8, Basophils % 0.3, Nucleated RBC % 0.0, Neutrophils # 6.4 H, Lymphocytes # 1.50, Monocytes # 0.9, Eosinophils # 0.2, Absolute Basophils 0.0 01/06/19 05:31: Sodium 139, Plasma Sodium 140, Potassium 3.5, Chloride 99, Carbon Dioxide 31.9, Anion Gap 11.6, BUN 32 H, Creatinine 1.49 H, Est GFR (Non- Af Amer) 37 L, BUN/Creatinine Ratio 21.5, Random Glucose 193 H, Calcium 8.5, Calcium Adj for Albumin 9.4, Total Bilirubin 0.2, AST 19, ALT 17 L, Alkaline Phosphatase 74, Total Protein 6.8, Albumin 2.5 L Discharge Location: Home Disposition: Home Health Service Home Health Agency: [facility] Home Health Condition: Fair Face to Face Encounter completed per [facility] Guidelines: No Discharge Activity: Activity as tolerated Discharge Diet: Consistent carbs, Other - No added salt. Fluid restrict to less than 2 quarts of fluids per day. Referrals: Tara Parks MD [Non Staff Physicians] - Additional Patient Instructions (free text): 1. Stop Metformin 2. Start Novolog 10 u before each meal 3. See Dr. Plascencia , pulmonology for followup 4. See Dr. Norton, PCP for recheck of diabetes management. Resume services with [facility] home health. Nursing, bath aide and PT services. Please call report and fax orders upon discharge. PCP is Dr Norton at [facility]. Complete Home Medications List: Complete Home Medication List: ALPRAZolam [Xanax] 1 mg PO BID PRN 01/04/19 Acetaminophen [Tylenol] 500 mg PO Q6H PRN 01/04/19 Amlodipine Besylate 5 mg PO DAILY 01/04/19 Atorvastatin Calcium 40 mg PO DAILY 01/04/19 Budesonide/Formoterol Fumarate [Symbicort 160-4.5 Mcg Inhaler] 2 puff INHALATION BID 01/04/19 Escitalopram Oxalate [Lexapro] 20 mg PO DAILY 01/04/19 Gabapentin [Neurontin] 1 cap PO TID 01/04/19 Hydrochlorothiazide 12.5 mg PO DAILY 01/04/19 Ipratropium/Albuterol Sulfate [Iprat-Albut 0.5-3(2.5) mg/3 ml] 3 ml INHALATION Q6H PRN 01/04/19 Levothyroxine Sodium [Synthroid] 112 mcg PO DAILY 01/04/19 Nebivolol HCl [Bystolic] 10 mg PO DAILY 01/04/19 Pantoprazole Sodium [Protonix] 40 mg PO DAILY 01/04/19 Tiotropium [place] [Spiriva] 1 cap INHALATION DAILY 01/04/19 traZODone HCL [Trazodone HCl] 200 mg PO HS 01/04/19 Furosemide [Lasix] 40 mg PO DAILY #30 tab 01/06/19 Insulin Aspart [Novolog Flexpen] 10 unit SQ AC #5 insuln.pen 01/06/19 Insulin Glargine,Hum.rec.anlog [Lantus Solostar] 30 unit SQ DAILY #3 insuln.pen 01/06/19
[2019-01-06 09:30] VITALS: BP 134/61
== END 2019-01-06 10:40 | disposition home health service (06) | DRG 291 ==
LOC: ER 22:37 → SCU 01-04 01:04 → MS 01-05 10:57
PROVIDERS: ADMIT Family Medicine; ATTEND Family Medicine
DX: I50.23 Acute on chronic systolic (congestive) heart failure; N18.3 Chronic kidney disease, stage 3 (moderate); J96.02 Acute respiratory failure with hypercapnia; Z87.891 Personal history of nicotine dependence; E11.65 Type 2 diabetes mellitus with hyperglycemia; E66.01 Morbid (severe) obesity due to excess calories; Z68.41 Body mass index [BMI] 40.0-44.9, adult; I13.0 Hypertensive heart and chronic kidney disease with heart failure and stage 1 through stage 4 chronic kidney disease, or unspecified chronic kidney disease; Z79.4 Long term (current) use of insulin; E11.22 Type 2 diabetes mellitus with diabetic chronic kidney disease; D63.1 Anemia in chronic kidney disease; J44.1 Chronic obstructive pulmonary disease with (acute) exacerbation
CPT/HCPCS: 36415; 36600; 71010; 71045; 71275; 80053; 81001; 82728; 82803; 83519; 83540; 83550; 83605; 83880; 84484; 85025; 85045; 85379; 87040; 87081; 93005; 93306; 94660; 94760; 97162; 99285; Q9967

== ENCOUNTER 2020-03-11 00:13 | Inpatient (IN) ==
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
[2020-03-11 01:04] LABS: Troponin I Less than 0.017 ng/mL (0.00-0.10)
[2020-03-11 01:14] LABS: ALT 23 U/L (19-67); AST 25 U/L (0-48); Albumin * 3.2 gm/dl (3.4-5.0); Alkaline Phosphatase * 124 U/L (50-170); Anion Gap 14.2 mmol/L (6.8-13.8); BUN/Creatinine Ratio 24.7 (9.0-21.6); Bilirubin, Total 0.2 mg/dL (0.0-1.1); Blood Urea Nitrogen 43 mg/dL (3-23); Ca. Corrected For Albumin 9.3 mg/dL (8.4-10.2); Carbon Dioxide 31.9 mmol/L (24-32.6); Chloride 99 mmol/L (97-106); Glucose * 295 mg/dL (70-110); Potassium 5.1 mmol/L (3.4-4.6); Sodium 140 mmol/L (132-142); Total Protein 7.2 gm/dL (6.2-8.2)
[2020-03-11 01:20] LABS: Hematocrit 36.1 % (37.0-47.0); Hemoglobin 10.7 gm/dL (12.5-16.0); Mean Cell Volume 96.8 fl (78-100); Mean Corpuscular Hemoglobin 28.7 pg (27-31); Mean Corpuscular Hgb Conc 29.6 g/dl (32-36); Mean Platelet Volume 10.2 fl (8-12.5); Neutrophil # 9.9 K/mm3 (1.3-6.0); Platelet Count 245 K/mm3 (150-450); Red Blood Count 3.73 M/mm3 (4.2-5.4); Red Cell Distribution Width 14.2 % (11.5-14.0); White Blood Count 12.4 K/mm3 (4.0-10.5)
[2020-03-11] MEDS ORDERED: FLUCONAZOLE/SODIUM CHLORIDE 200 MG/100 ML BAG IV SCH (01:30)
[2020-03-11 01:33] LABS: Urine Appearance Cloudy (CLEAR); Urine Bacteria 1+; Urine Bilirubin Negative (NEGATIVE); Urine Blood 5 /ul (NEGATIVE); Urine Color Yellow; Urine Ketone Negative (NEGATIVE); Urine Nitrite Negative (NEGATIVE); Urine Protein 15 mg/dL (NEGATIVE); Urine RBC None Seen /hpf (0-5); Urine Urobilinogen Normal (NORMAL); Urine pH 5.5 pH (5.0-7.0)
[2020-03-11 01:34] LABS: Urine WBC TRACE /hpf (0-5); Urine Yeast TRACE
[2020-03-11] MEDS ORDERED: FUROSEMIDE 10 MG/ML VIAL IV ONE (02:10)
[2020-03-11] MEDS ORDERED: cefTRIAXone SODIUM 1,000 MG/100 ML BAG IV ONE (02:29)
[2020-03-11 02:36] LABS: BNP * 572 pg/mL (5-325)
[2020-03-11 02:47] LABS: CK Total * 110 U/L (0-259)
[2020-03-11] MEDS ORDERED: INSULIN LISPRO 100 UNITS/ML VIAL SC ONE (03:40)
[2020-03-11] MEDS: ENOXAPARIN SODIUM 40 MG/0.4 ML SYRG SC SCH (04:47)
[2020-03-11] MEDS: INSULIN LISPRO 100 UNITS/ML VIAL SC SCH ×6 (08:05→21:07)
[2020-03-11] MEDS ORDERED: FUROSEMIDE 10 MG/ML VIAL IV SCH (09:00)
[2020-03-11] MEDS: NYSTATIN 15 APPL BTL TP SCH ×2 (09:45→21:02)
--- NOTE | 2020-03-11 13:58 | HP ---
Chief Complaint - Chief Complaint Date of Service: 03/11/20 Time of Service: 11:30 Chief Complaint: respiratory distress, chf History of Present Illness: 74-year-old female with severe COPD and chronic respiratory failure presented to the ER after she thought about today. She recently was being treated for UTI and not feeling well. Patient placed on BiPAP due to satting in the low 80s upon admission. Initial white count was 12.4. CHEM panel was significant for mildly hypokalemia at 5.1 and a GFR of 31 with a creatinine 1.74. Urine was dirty but did not show signs of infection. Chest x-ray obtained in the ER showed low lung volumes with an elevated right hemidiaphragm. Chronic atelectasis. Possible underlying neoplasm due to unchanged heterogeneous opacity that was seen similar to the prior x-ray obtained 08/13/2019. Patient admitted to [facility] floor under inpatient due to acute respiratory distress secondary to COPD. Patient continues on BiPAP. Of note patient initially presented with neck pain and a CT scan of her cervical spine did not show any acute fractures but there was significant motion artifact that made visualizing her spine in its entirety difficult. She is currently asleep in bed and arousable secondary to painful stimuli and is protecting her airway but otherwise sleeping. Patient has a history of insulin-dependent diabetes, mild dementia, chronic CHF, and decreased mobility/deconditioning secondary to morbid obesity. Currently not a acute distress and not answering any questions at this time. Sisters in the room saying that she is been acting a little bit off lately. Medical History (Last Reviewed 03/11/20 @ 00:33 by Casey Diaz MD) Post-menopause bleeding (Acute) Jazlyn is to have a D&C in [facility] with Dr. Joyner next week. Hysteroscopy revealed a thickened endometrium. Polyarthralgia (Chronic) Muscle stiffness (Acute) Shoulder pain (Acute) Hyperlipidemia LDL goal <70 (Chronic) UTI (urinary tract infection) (Acute) Fall (Acute) Diabetes mellitus, insulin dependent (IDDM), uncontrolled (Chronic) BS better controlled lately. Dependence on supplemental oxygen (Chronic) Hepatic steatosis (Chronic) Anxiety Arthritis Back pain COPD (chronic obstructive pulmonary disease) Congenital heart disease Depressed Diabetes H/O bone density study Onset Date: ~2012 H/O mammogram Onset Date: ~2016 HTN (hypertension) OCD (obsessive compulsive disorder) Sleep apnea CPAP Surgical History: Surgical History (Last Reviewed 03/11/20 @ 00:33 by Casey Diaz MD) History of colonoscopy Onset Date: ~2013 History of cholecystectomy Onset Date: ~1997 [facility] History of total knee arthroplasty Onset Date: ~[address] Roberto in [place] [address] Cummings at [facility] 2002 Family History: Family History (Last Reviewed 03/11/20 @ 00:33 by Casey Diaz MD) Mother , 80 Cancer breast Father , 68 Cancer colon Aneurysm brain Brother , 46 Sarcoidosis Other Family history non-contributory Social History: (Last Reviewed 03/11/20 @ 00:33 by Casey Diaz MD) Social History: Marital status: / lives independently: No household members: other number of children: 2 current occupational status: retired Highest education level completed: high school graduate Service: No Tobacco: Smoking Status: Former smoker Alcohol: alcohol intake: never Substance Use: substance use type: does not use Dietary Habits: caffeine: Yes Type: coffee Pets: pets and animals: cat(s) Review Of Systems (GEN) - Review of Systems Additional Comments: Patient unable to answer due to her somnolence as well as her having BiPAP mask on. She does not appear to be in any acute distress at this time though. Immunizations: IMMUNIZATION HX Immunizations Up to Date Yes History of Influenza Vaccine Yes Hx Pneumococcal Vaccination Yes Allergies/Adverse Reactions: Allergies Allergy/AdvReac Type Severity Reaction Status Date / Time Sulfa (Sulfonamide Allergy Unknown Verified 03/11/20 04:38 Antibiotics) Home Medications: HOME MEDICATIONS ALPRAZolam [Xanax] 1 mg PO DAILY PRN 01/04/19 [Last Taken Unknown] Budesonide/Formoterol Fumarate [Symbicort 160-4.5 Mcg Inhaler] 2 puff INHALATION BID 01/04/19 [Last Taken Unknown] Escitalopram Oxalate [Lexapro] 20 mg PO DAILY 01/04/19 [Last Taken Unknown] Pantoprazole Sodium [Protonix] 40 mg PO DAILY 01/04/19 [Last Taken Unknown] Tiotropium [place] [Spiriva] 1 cap INHALATION DAILY 01/04/19 [Last Taken 06/29/19 08:30] Durable Medical Equipment See Dose Instructions .ROUTE .MEDSUPPLY #1 ea 02/02/19 [Last Taken Unknown] aspirin 81 mg tablet,delayed release 81 mg PO DAILY 02/02/19 [Last Taken Unknown] cyanocobalamin (vitamin B-12) 100 mcg tablet 100 mcg PO DAILY 02/02/19 [Last Taken Unknown] mecobalamin (vitamin B12) 5,000 mcg disintegrating tablet 5,000 mcg PO DAILY tab 02/02/19 [Last Taken Unknown] acetaminophen 500 mg tablet 500 mg PO Q6H PRN #120 tab 04/15/19 [Last Taken Unknown] blood sugar diagnostic See Rx Instructions .ROUTE .MEDSUPPLY #100 ea 08/12/19 [Last Taken Unknown] lancets 30 gauge See Rx Instructions .ROUTE .MEDSUPPLY #100 ea 08/17/19 [Last Taken Unknown] insulin aspart U-100 100 unit/mL (3 mL) subcutaneous pen 24 unit SUBCUT BID #15 ml 08/18/19 [Last Taken Unknown] pen needle, diabetic 31 gauge x 5/16" See Dose Instructions .ROUTE .MEDSUPPLY #100 ea 08/19/19 [Last Taken Unknown] rosuvastatin 10 mg tablet 10 mg PO DAILY #30 tab 08/19/19 [Last Taken Unknown] insulin glargine 100 unit/mL (3 mL) subcutaneous pen 38 unit SUBCUT DAILY #15 ml 09/19/19 [Last Taken Unknown] levothyroxine 125 mcg capsule 125 mcg PO DAILY #45 cap 10/20/19 [Last Taken Unknown] hydrochlorothiazide 12.5 mg tablet 12.5 mg PO DAILY #30 tab 11/14/19 [Last Taken Unknown] nebivolol 10 mg tablet 10 mg PO DAILY #30 tab 12/09/19 [Last Taken Unknown] irbesartan 150 mg tablet 150 mg PO DAILY #30 tab 02/08/20 [Last Taken Unknown] Albuterol Sulfate [Albuterol Sulfate Hfa] 8.5 gm INHALATION Q4H PRN 03/11/20 [Last Taken Unknown] Escitalopram Oxalate 5 mg PO DAILY 03/11/20 [Last Taken Unknown] Ferrous Sulfate 325 mg PO DAILY 03/11/20 [Last Taken Unknown] Nystatin 1 ea MC TID 03/11/20 [Last Taken Unknown] QUEtiapine FUMARATE [Seroquel] 75 mg PO HS 03/11/20 [Last Taken Unknown] traZODone HCL [Trazodone HCl] 50 mg PO HS 03/11/20 [Last Taken Unknown] Exam - Exam Vital Signs: Vital Signs - Last Taken Temp 36.2 C 03/11/20 10:00 Pulse 62 03/11/20 13:25 Resp 20 03/11/20 13:25 BP 143/85 03/11/20 10:00 Pulse Ox 95 03/11/20 13:25 Constitutional: Present: Elderly, Morbidly obese Neck: Present: other - Will examine when patient is more alert Respiratory: Present: lungs clear, decreased breath sounds - Poor effort, decreased down secondary to body habitus. Absent: stridor, wheezing Cardiovascular/Chest: Present: regular rate, rhythm, no murmur - Distant heart sounds due to body habitus Abdomen: Present: soft, nontender, nondistended. Absent: suprapubic tenderness Appearance: Present: disheveled Diagnostic Studies: Abnormal Lab Results 03/11/20 03/11/20 03/11/20 Range/Units 00:45 01:10 01:15 WBC 12.4 H (4.0-10.5) K/mm3 RBC 3.73 L (4.2-5.4) M/mm3 Hgb 10.7 L (12.5-16.0) gm/dL Hct 36.1 L (37.0-47.0) % MCHC 29.6 L (32-36) g/dl RDW 14.2 H (11.5-14.0) % Immature Gran % (Auto) 0.70 H (0.001-0.429) % Immature Gran # (Auto) 0.09 H (0.000-0.0310) K/mm3 Neutrophils % 80.0 H (42-75.0) % Lymphocytes % 10.2 L (20-51) % Neutrophils # 9.9 H (1.3-6.0) K/mm3 Lymphocytes # 1.27 L (1.5-3.5) k/mm3 pCO2 (32.0-45.0) mmHg pO2 (83.0-108.0) mmHg HCO3 (21.0-28.0) mmol/L Total CO2 (19.0-24.0) mmol/L Base Excess (-2.0-3.0) mmol/L ABG pH (7.35-7.45) ABG O2 Sat (Measured) (94.0-98.0) % Plasma Sodium 143 H (130-142) mmol/L Potassium 5.1 H (3.4-4.6) mmol/L Anion Gap 14.2 H (6.8-13.8) mmol/L BUN 43 H D (3-23) mg/dL Creatinine 1.74 H D (0.4-1.4) mg/dL Est GFR (Non-Af Amer) 31 L D (60-130) mL/min BUN/Creatinine Ratio 24.7 H (9.0-21.6) Random Glucose 295 H (70-110) mg/dL B-Natriuretic Peptide (5-325) pg/mL Albumin 3.2 L (3.4-5.0) gm/dl Urine Protein 15 H (NEGATIVE) mg/dL Urine Glucose (UA) 500 H (NEGATIVE) mg/dL Urine Blood 5 H (NEGATIVE) /ul Urine WBC Trace H (0-5) /hpf Ur Epithelial Cells >25 H (0-5) /hpf Urine Bacteria 1+ H (NONE) 03/11/20 03/11/20 03/11/20 Range/Units 01:45 10:15 11:10 WBC (4.0-10.5) K/mm3 RBC (4.2-5.4) M/mm3 Hgb (12.5-16.0) gm/dL Hct (37.0-47.0) % MCHC (32-36) g/dl RDW (11.5-14.0) % Immature Gran % (Auto) (0.001-0.429) % Immature Gran # (Auto) (0.000-0.0310) K/mm3 Neutrophils % (42-75.0) % Lymphocytes % (20-51) % Neutrophils # (1.3-6.0) K/mm3 Lymphocytes # (1.5-3.5) k/mm3 pCO2 85.0 H* 71.7 H* (32.0-45.0) mmHg pO2 71.6 L (83.0-108.0) mmHg HCO3 41.7 H 33.6 H (21.0-28.0) mmol/L Total CO2 44.3 H 35.8 H (19.0-24.0) mmol/L Base Excess 12.5 H 5.4 H (-2.0-3.0) mmol/L ABG pH 7.31 L 7.29 L (7.35-7.45) ABG O2 Sat (Measured) 91.9 L (94.0-98.0) % Plasma Sodium (130-142) mmol/L Potassium (3.4-4.6) mmol/L Anion Gap (6.8-13.8) mmol/L BUN (3-23) mg/dL Creatinine (0.4-1.4) mg/dL Est GFR (Non-Af Amer) (60-130) mL/min BUN/Creatinine Ratio (9.0-21.6) Random Glucose (70-110) mg/dL B-Natriuretic Peptide 572 H (5-325) pg/mL Albumin (3.4-5.0) gm/dl Urine Protein (NEGATIVE) mg/dL Urine Glucose (UA) (NEGATIVE) mg/dL Urine Blood (NEGATIVE) /ul Urine WBC (0-5) /hpf Ur Epithelial Cells (0-5) /hpf Urine Bacteria (NONE) 03/11/20 Range/Units 12:10 WBC (4.0-10.5) K/mm3 RBC (4.2-5.4) M/mm3 Hgb (12.5-16.0) gm/dL Hct (37.0-47.0) % MCHC (32-36) g/dl RDW (11.5-14.0) % Immature Gran % (Auto) (0.001-0.429) % Immature Gran # (Auto) (0.000-0.0310) K/mm3 Neutrophils % (42-75.0) % Lymphocytes % (20-51) % Neutrophils # (1.3-6.0) K/mm3 Lymphocytes # (1.5-3.5) k/mm3 pCO2 74.9 H* (32.0-45.0) mmHg pO2 111.7 H (83.0-108.0) mmHg HCO3 35.1 H (21.0-28.0) mmol/L Total CO2 37.4 H (19.0-24.0) mmol/L Base Excess 6.6 H (-2.0-3.0) mmol/L ABG pH 7.29 L (7.35-7.45) ABG O2 Sat (Measured) (94.0-98.0) % Plasma Sodium (130-142) mmol/L Potassium (3.4-4.6) mmol/L Anion Gap (6.8-13.8) mmol/L BUN (3-23) mg/dL Creatinine (0.4-1.4) mg/dL Est GFR (Non-Af Amer) (60-130) mL/min BUN/Creatinine Ratio (9.0-21.6) Random Glucose (70-110) mg/dL B-Natriuretic Peptide (5-325) pg/mL Albumin (3.4-5.0) gm/dl Urine Protein (NEGATIVE) mg/dL Urine Glucose (UA) (NEGATIVE) mg/dL Urine Blood (NEGATIVE) /ul Urine WBC (0-5) /hpf Ur Epithelial Cells (0-5) /hpf Urine Bacteria (NONE) Laboratory Results WBC 12.4 K/mm3 (4.0-10.5) H 03/11/20 01:15 RBC 3.73 M/mm3 (4.2-5.4) L 03/11/20 01:15 Hgb 10.7 gm/dL (12.5-16.0) L 03/11/20 01:15 Hct 36.1 % (37.0-47.0) L 03/11/20 01:15 MCV 96.8 fl (78-100) 03/11/20 01:15 MCH 28.7 pg (27-31) 03/11/20 01:15 MCHC 29.6 g/dl (32-36) L 03/11/20 01:15 RDW 14.2 % (11.5-14.0) H 03/11/20 01:15 Plt Count 245 K/mm3 (150-450) 03/11/20 01:15 MPV 10.2 fl (8-12.5) 03/11/20 01:15 Immature Gran % (Auto) 0.70 % (0.001-0.429) H 03/11/20 01:15 Immature Gran # (Auto) 0.09 K/mm3 (0.000-0.0310) H 03/11/20 01:15 Neutrophils % 80.0 % (42-75.0) H 03/11/20 01:15 Lymphocytes % 10.2 % (20-51) L 03/11/20 01:15 Monocytes % 6.6 % (0.0-9) 03/11/20 01:15 Eosinophils % 2.3 % (0.0-3.0) 03/11/20 01:15 Basophils % 0.2 % (0.0-1.0) 03/11/20 01:15 Nucleated RBC % 0.0 k/mm3 (0-1) 03/11/20 01:15 Neutrophils # 9.9 K/mm3 (1.3-6.0) H 03/11/20 01:15 Lymphocytes # 1.27 k/mm3 (1.5-3.5) L 03/11/20 01:15 Monocytes # 0.8 k/mm3 (0.0-1.0) 03/11/20 01:15 Eosinophils # 0.3 k/mm3 (0.0-0.7) 03/11/20 01:15 Absolute Basophils 0.0 k/mm3 (0.0-0.1) 03/11/20 01:15 pCO2 74.9 mmHg (32.0-45.0) H* 03/11/20 12:10 pO2 111.7 mmHg (83.0-108.0) H 03/11/20 12:10 HCO3 35.1 mmol/L (21.0-28.0) H 03/11/20 12:10 Total CO2 37.4 mmol/L (19.0-24.0) H 03/11/20 12:10 Base Excess 6.6 mmol/L (-2.0-3.0) H 03/11/20 12:10 ABG pH 7.29 (7.35-7.45) L 03/11/20 12:10 ABG O2 Sat (Measured) 97.4 % (94.0-98.0) 03/11/20 12:10 Sodium 140 mmol/L (132-142) 03/11/20 00:45 Plasma Sodium 143 mmol/L (130-142) H 03/11/20 00:45 Potassium 5.1 mmol/L (3.4-4.6) H 03/11/20 00:45 Chloride 99 mmol/L (97-106) 03/11/20 00:45 Carbon Dioxide 31.9 mmol/L (24-32.6) 03/11/20 00:45 Anion Gap 14.2 mmol/L (6.8-13.8) H 03/11/20 00:45 BUN 43 mg/dL (3-23) H D 03/11/20 00:45 Creatinine 1.74 mg/dL (0.4-1.4) H D 03/11/20 00:45 Est GFR (Non-Af Amer) 31 mL/min (60-130) L D 03/11/20 00:45 BUN/Creatinine Ratio 24.7 (9.0-21.6) H 03/11/20 00:45 Random Glucose 295 mg/dL (70-110) H 03/11/20 00:45 Calcium 9.0 mg/dL (7.9-10.9) 03/11/20 00:45 Calcium Adj for Albumin 9.3 mg/dL (8.4-10.2) 03/11/20 00:45 Total Bilirubin 0.2 mg/dL (0.0-1.1) 03/11/20 00:45 AST 25 U/L (0-48) 03/11/20 00:45 ALT 23 U/L (19-67) 03/11/20 00:45 Alkaline Phosphatase 124 U/L (50-170) 03/11/20 00:45 Creatine Kinase 110 U/L (0-259) 03/11/20 01:45 Troponin I Less than 0.017 ng/mL (0.00-0.10) 03/11/20 00:45 B-Natriuretic Peptide 572 pg/mL (5-325) H 03/11/20 01:45 Total Protein 7.2 gm/dL (6.2-8.2) 03/11/20 00:45 Albumin 3.2 gm/dl (3.4-5.0) L 03/11/20 00:45 Urine Color Yellow 03/11/20 01:10 Urine Appearance Cloudy (CLEAR) 03/11/20 01:10 Urine pH 5.5 pH (5.0-7.0) 03/11/20 01:10 Ur Specific [place] 1.020 SP.GR. (1.005-1.010) 03/11/20 01:10 Urine Protein 15 mg/dL (NEGATIVE) H 03/11/20 01:10 Urine Glucose (UA) 500 mg/dL (NEGATIVE) H 03/11/20 01:10 Urine Ketones Negative mg/dL (NEGATIVE) 03/11/20 01:10 Urine Blood 5 /ul (NEGATIVE) H 03/11/20 01:10 Urine Nitrate Negative (NEGATIVE) 03/11/20 01:10 Urine Bilirubin Negative mg/dl (NEGATIVE) 03/11/20 01:10 Prot Sulfosalicylic Acd QNS 03/11/20 01:10 Urine Urobilinogen Normal EU/dl (NORMAL) 03/11/20 01:10 Ur Leukocyte Esterase Negative /ul (NEGATIVE) 03/11/20 01:10 Urine RBC None seen /hpf (0-5) 03/11/20 01:10 Urine WBC Trace /hpf (0-5) H 03/11/20 01:10 Ur Epithelial Cells >25 /hpf (0-5) H 03/11/20 01:10 Urine Bacteria 1+ (NONE) H 03/11/20 01:10 Urine Yeast Trace (NONE) 03/11/20 01:10 Urine Culture Comments Culture to follow 03/11/20 01:10 Assessment/Plan - Narrative Narrative: 74-year-old female with history of COPD admitted for acute respiratory distress requiring BiPAP to maintain sats. ABGs ordered at this time to monitor CO2 and pH. Initial blood gas showed a PCO2 of 71.7 with a pH of 7.29. Patient is compensating with a slightly elevated bicarb. Patient is a chronic CO2 retainer and will have to be monitored closely so as not to decrease her respiratory drive by correcting her imbalance too quickly. Continue BiPAP but will monitor closely. I believe this patient does not use oxygen at home but have not been able to talk to her yet so I am unsure how accurate this is. We will discuss this when family is back in the room. Insulin restarted, holding her short acting but sliding scale is ordered. Long- acting to be given. The rest of her vital signs are stable and she is afebrile. We will repeat BMP and CBC in the morning. Mildly elevated white count likely secondary to stress reaction from COPD exacerbation as there is no active obvious areas of infection. Urine was negative for nitrites or leukocyte esterase. Chest x-ray did not show any focal infiltrates as well monitor. Patient did receive a dose of Rocephin in the ER, will hold this for the time being. CHF appears to be stable this time as patient does not appear to be fluid overloaded, no real vascular congestion seen on her x-rays. BMP was within normal limits. We will continue to monitor. Patient likely need PT and OT consulted for tomorrow due to her deconditioning and chronic weakness secondary to her morbid obesity. Nurse will call questions or concerns, Lovenox ordered for DVT prophylaxis as well as SCDs while in bed. Consistent carb diet ordered. Hopefully patient is more alert and conversant tomorrow patient will need a decent neck exam just to make sure there is an something that is being missed as her CT scan was not conclusive. - Assessment/Plan (1) COPD (chronic obstructive pulmonary disease) Problem: Chronic Qualifiers: COPD type: COPD with acute lower respiratory infection Qualified Code(s): J44.0 - Chronic obstructive pulmonary disease with (acute) lower respiratory infection (2) Acute and chronic respiratory failure with hypoxia Problem: Acute (3) Dependence on supplemental oxygen Problem: Chronic (4) Diabetes mellitus, insulin dependent (IDDM), uncontrolled Problem: Chronic Qualifiers: Glycemic state: with hyperglycemia Qualified Code(s): E10.65 - Type 1 diabetes mellitus with hyperglycemia (5) Fall Problem: Acute Qualifiers: Encounter type: initial encounter Qualified Code(s): W19.XXXA - Unspecified fall, initial encounter (6) CHF (congestive heart failure) Problem: Chronic Qualifiers: Heart failure type: systolic Heart failure chronicity: acute on chronic Qualified Code(s): I50.23 - Acute on chronic systolic (congestive) heart failure (7) Anemia Problem: Chronic Qualifiers: Anemia type: due to chronic kidney disease Chronic kidney disease stage: stage 3 (moderate) Qualified Code(s): N18.3 - Chronic kidney disease, stage 3 (moderate); D63.1 - Anemia in chronic kidney disease (8) Morbid obesity with BMI of 40.0-44.9, adult Problem: Chronic (9) UTI (urinary tract infection) Problem: Acute Qualifiers: Urinary tract infection type: acute cystitis Hematuria presence: with hem aturia Qualified Code(s): N30.01 - Acute cystitis with hematuria
[2020-03-11] MEDS ORDERED: INSULIN LISPRO 100 UNITS/ML VIAL SC SCH (21:00)
[2020-03-11] MEDS: FUROSEMIDE 10 MG/ML VIAL IV SCH (21:05)
[2020-03-11] MEDS: INSULIN GLARGINE,HUM.REC.ANLOG 100 UNITS/ML VIAL SC SCH (21:11)
[2020-03-12] MEDS: ENOXAPARIN SODIUM 40 MG/0.4 ML SYRG SC SCH (05:09)
[2020-03-12] MEDS: INSULIN LISPRO 100 UNITS/ML VIAL SC SCH ×4 (07:14→20:33)
[2020-03-12 08:01] LABS: Hematocrit 38.6 % (37.0-47.0); Hemoglobin 11.2 gm/dL (12.5-16.0); Mean Cell Volume 97.7 fl (78-100); Mean Corpuscular Hemoglobin 28.4 pg (27-31); Mean Platelet Volume 9.7 fl (8-12.5); Neutrophil # 8.5 K/mm3 (1.3-6.0); Neutrophil % 73.6 % (42-75.0); Platelet Count 254 K/mm3 (150-450); Red Blood Count 3.95 M/mm3 (4.2-5.4); Red Cell Distribution Width 14.4 % (11.5-14.0); White Blood Count 11.6 K/mm3 (4.0-10.5)
[2020-03-12 08:14] LABS: ALT 24 U/L (19-67); AST 27 U/L (0-48); Albumin * 3.3 gm/dl (3.4-5.0); Alkaline Phosphatase * 119 U/L (50-170); Bilirubin, Total 0.4 mg/dL (0.0-1.1); Blood Urea Nitrogen 46 mg/dL (3-23); Ca. Corrected For Albumin 9.7 mg/dL (8.4-10.2); Calcium * 9.5 mg/dL (7.9-10.9); Chloride 96 mmol/L (97-106); Glucose * 195 mg/dL (70-110); Potassium 3.9 mmol/L (3.4-4.6); Sodium 141 mmol/L (132-142); Total Protein 8.1 gm/dL (6.2-8.2)
[2020-03-12 08:22] LABS: Carbon Dioxide 48.6 mmol/L (24-32.6)
[2020-03-12] MEDS ORDERED: PANTOPRAZOLE SODIUM 40 MG TABLET.EC PO SCH (09:00)
[2020-03-12] MEDS ORDERED: NYSTATIN MC SCH (09:00)
[2020-03-12] MEDS: FUROSEMIDE 10 MG/ML VIAL IV SCH ×2 (09:19→20:34)
[2020-03-12] MEDS: ESCITALOPRAM OXALATE 10 MG TAB PO SCH ×2 (09:20→09:38)
[2020-03-12] MEDS: LOSARTAN POTASSIUM 50 MG TABLET PO SCH (09:20)
[2020-03-12] MEDS: LEVOTHYROXINE SODIUM 125 MCG TABLET PO SCH (09:20)
[2020-03-12] MEDS: TIOTROPIUM BROMIDE 5 CAP INHALER IH SCH (09:22)
[2020-03-12] MEDS: FLUTICASONE PROPION/SALMETEROL 14 PUFF DISK.W.DEV IH SCH ×2 (09:22→20:32)
[2020-03-12] MEDS: PANTOPRAZOLE SODIUM 40 MG in NORMAL SALINE 100 ML IV SCH (09:36)
[2020-03-12] MEDS: INSULIN GLARGINE,HUM.REC.ANLOG 100 UNITS/ML VIAL SC SCH (09:37)
[2020-03-12] MEDS: NYSTATIN 15 APPL BTL TP SCH ×2 (09:43→20:34)
--- NOTE | 2020-03-12 19:16 | PN ---
Subjective - Date and Time Seen Date: 03/12/20 Time: 19:30 Subjective Narrative: On service note: Jazlyn THOMPSON is a 74-year-old female who has history of advanced COPD, congestive heart failure, morbid obesity, hypertension and general debilitation. She presented to the emergency room short of breath with decreased mental status. Blood gases showed hypercapnia of 80. She was started on breathing treatments and placed on BiPAP. She has improved since admission and this morning's blood gases 2 hours after being off BiPAP at the PCO2 53 PO2 of 57 O2 saturation was 88.9% and she was feeling better. I ordered a CT of her chest. There is a question no widened mediastinum and a malignancy could not be excluded. There is eventration of the right hemidiaphragm and bilateral pleural effusions. She has poor renal function as well with EGFR of [address] scan must be done without contrast. She has been diuresed already and seems to be doing well with that. Arrangements are being made for chcf/long-term care. Objective - Review of Systems Generalized/Overall Review: Reports: Weakness EENTM: Reports: No Symptoms Reported Respiratory: Reports: Shortness of Breath, Wheezing Cardiac: Reports: No Symptoms Reported Abdominal: Reports: No Symptoms Reported Genitourinary Symptoms: Reports: No Symptoms Reported Musculoskeletal Complaints: Reports: Back Pain Neurological: Reports: No Symptoms Reported Skin: Reports: No Symptoms Reported - Vitals Vitals: Last Vital Signs Temp 36.5 C 03/12/20 18:29 Pulse 76 03/12/20 18:29 Resp 23 H 03/12/20 18:29 BP 148/64 03/12/20 18:29 Pulse Ox 93 03/12/20 18:29 - Abnormal Lab Findings Abnormal Lab Findings: Abnormal Lab Results 03/11/20 03/11/20 03/12/20 Range/Units 19:23 22:40 02:10 WBC (4.0-10.5) K/mm3 RBC (4.2-5.4) M/mm3 Hgb (12.5-16.0) gm/dL MCHC (32-36) g/dl RDW (11.5-14.0) % Immature Gran # (Auto) (0.000-0.0310) K/mm3 Lymphocytes % (20-51) % Eosinophils % (0.0-3.0) % Neutrophils # (1.3-6.0) K/mm3 pCO2 80.2 H* 69.1 H 60.0 H (32.0-45.0) mmHg pO2 64.3 L 80.7 L 71.6 L (83.0-108.0) mmHg HCO3 41.8 H 37.7 H 36.7 H (21.0-28.0) mmol/L Total CO2 44.3 H 39.8 H 38.5 H (19.0-24.0) mmol/L Base Excess 13.1 H 10.0 H 10.2 H (-2.0-3.0) mmol/L ABG pH 7.34 L (7.35-7.45) ABG O2 Sat (Measured) 90.0 L (94.0-98.0) % Plasma Sodium (130-142) mmol/L Chloride (97-106) mmol/L Carbon Dioxide (24-32.6) mmol/L Anion Gap (6.8-13.8) mmol/L BUN (3-23) mg/dL Creatinine (0.4-1.4) mg/dL Est GFR (Non-Af Amer) (60-130) mL/min BUN/Creatinine Ratio (9.0-21.6) Random Glucose (70-110) mg/dL Albumin (3.4-5.0) gm/dl 03/12/20 03/12/20 03/12/20 Range/Units 07:57 07:57 10:05 WBC 11.6 H (4.0-10.5) K/mm3 RBC 3.95 L (4.2-5.4) M/mm3 Hgb 11.2 L (12.5-16.0) gm/dL MCHC 29.0 L (32-36) g/dl RDW 14.4 H (11.5-14.0) % Immature Gran # (Auto) 0.05 H (0.000-0.0310) K/mm3 Lymphocytes % 14.8 L (20-51) % Eosinophils % 3.2 H (0.0-3.0) % Neutrophils # 8.5 H (1.3-6.0) K/mm3 pCO2 53.3 H (32.0-45.0) mmHg pO2 57.2 L (83.0-108.0) mmHg HCO3 31.9 H (21.0-28.0) mmol/L Total CO2 33.5 H (19.0-24.0) mmol/L Base Excess 5.9 H (-2.0-3.0) mmol/L ABG pH (7.35-7.45) ABG O2 Sat (Measured) 88.9 L (94.0-98.0) % Plasma Sodium 143 H (130-142) mmol/L Chloride 96 L (97-106) mmol/L Carbon Dioxide 48.6 H (24-32.6) mmol/L Anion Gap Less than 1.0 L (6.8-13.8) mmol/L BUN 46 H (3-23) mg/dL Creatinine 1.77 H (0.4-1.4) mg/dL Est GFR (Non-Af Amer) 30 L (60-130) mL/min BUN/Creatinine Ratio 26.0 H (9.0-21.6) Random Glucose 195 H D (70-110) mg/dL Albumin 3.3 L (3.4-5.0) gm/dl - Exam Constitutional: Present: Alert, Oriented x3, Cooperative, Well developed, Well nourished, Obese ENT Exam: Present: normal ENT inspection, hearing grossly normal, pharynx normal, TMs normal Neck: Present: non-tender, full range of motion, supple Breasts: Present: Exam deferred Respiratory: Present: chest non-tender, decreased breath sounds, wheezing Cardiovascular/Chest: Present: normal peripheral pulses, regular rate, rhythm, no chest tenderness, no edema, no gallop, no JVD, no murmur, no rub Abdomen: Present: Normal bowel sounds, soft, nontender, nondistended, no rebound tenderness, no hepatospenomegaly, no masses, obese /Rectal: Present: Exam deferred Extremity: Present: normal range of motion, non-tender, normal inspection, no pedal edema, no calf tenderness, normal capillary refill Skin Exam: Present: normal color, warm/dry, no cyanosis Lymphatic: Present: no adenopathy Neurologic: Present: semiautomatic stitcher operator II-XII nml as tested, no motor/sensory deficits, alert, normal mood/affect, oriented x 3 Appearance: Present: appropriate appearance, appropriate insight, neat Eye contact: Present: cooperative, good eye contact, normal speech Thoughts: Present: normal thought pattern, no apparent hallucination Assessment/Plan Plan Narrative: She is tolerating the BiPAP fairly well and she is advised that she must wear it when she is sleeping. 2 hours after coming off the BiPAP her blood gases were actually pretty good for her with numbers listed above. So I will leave her on 2-1/2 L of nasal cannula O2 and about 30% FiO2 when she is on her BiPAP. Anticipate discharge Thursday. - Problems/Diagnosis (1) Acute on chronic systolic CHF (congestive heart failure) Problem: Acute (2) Acute and chronic respiratory failure with hypoxia Problem: Acute (3) Advanced chronic obstructive pulmonary disease Problem: Acute (4) Morbid obesity Problem: Chronic (5) Essential hypertension Problem: Chronic (6) Polyarthralgia Problem: Chronic (7) Stage III chronic kidney disease Problem: Acute
[2020-03-12] MEDS: QUEtiapine FUMARATE 25 MG TABLET PO SCH (20:34)
[2020-03-13] MEDS: ENOXAPARIN SODIUM 40 MG/0.4 ML SYRG SC SCH (03:21)
[2020-03-13] MEDS: INSULIN LISPRO 100 UNITS/ML VIAL SC SCH ×4 (06:34→21:04)
[2020-03-13] MEDS: LEVOTHYROXINE SODIUM 125 MCG TABLET PO SCH (06:35)
[2020-03-13] MEDS: FLUTICASONE PROPION/SALMETEROL 14 PUFF DISK.W.DEV IH SCH ×2 (08:21→21:04)
[2020-03-13] MEDS: TIOTROPIUM BROMIDE 5 CAP INHALER IH SCH (08:22)
[2020-03-13] MEDS: ESCITALOPRAM OXALATE 10 MG TAB PO SCH ×2 (08:23→08:24)
[2020-03-13] MEDS: LOSARTAN POTASSIUM 50 MG TABLET PO SCH (08:24)
[2020-03-13] MEDS: FUROSEMIDE 10 MG/ML VIAL IV SCH ×2 (08:26→21:03)
[2020-03-13] MEDS: INSULIN GLARGINE,HUM.REC.ANLOG 100 UNITS/ML VIAL SC SCH ×2 (08:35→19:42)
[2020-03-13] MEDS: PANTOPRAZOLE SODIUM 40 MG in NORMAL SALINE 100 ML IV SCH (08:38)
[2020-03-13] MEDS: NYSTATIN 15 APPL BTL TP SCH ×2 (08:59→21:05)
--- NOTE | 2020-03-13 18:15 | PN ---
Subjective - Date and Time Seen Date: 03/13/20 Time: 12:55 Subjective Narrative: Angelina is been doing fairly well with her breathing on just 2-1/2 L nasal cannula O2. She is alert and her color is good. She is to go to a rehab facility tomorrow. Apparently a visitor brought her candy and she had been eating a lot of that. Blood sugar before supper was over 500 and so a blood serum glucose was ordered and it was 708. She has been given 20 units of insulin and she will have a blood sugar check in 2 hours. I may have to give her some insulin IV but hopefully this will bring it down some. I have instructed nursing to take the candy out of her room. She will have morning lab drawn tomorrow. Objective Objective Narrative: Her physical exam is otherwise unchanged from yesterday. 11 systems review and exam are stable. She does appear to be somewhat improved actually from yesterday and that her skin color is better. I reviewed her lab work with her and she expresses understanding. - Review of Systems Generalized/Overall Review: Reports: No Symptoms Reported EENTM: Reports: No Symptoms Reported Respiratory: Reports: Shortness of Breath Cardiac: Reports: No Symptoms Reported Abdominal: Reports: No Symptoms Reported Genitourinary Symptoms: Reports: No Symptoms Reported Musculoskeletal Complaints: Reports: No Symptoms Reported Neurological: Reports: No Symptoms Reported Skin: Reports: No Symptoms Reported Endocrine: Reports: No Symptoms Reported - Vitals Vitals: Last Vital Signs Temp 36.9 C 03/13/20 14:52 Pulse 80 03/13/20 14:52 Resp 23 H 03/13/20 14:52 BP 120/69 03/13/20 14:52 Pulse Ox 93 03/13/20 14:52 - Abnormal Lab Findings Abnormal Lab Findings: Abnormal Lab Results 03/13/20 Range/Units 17:03 Random Glucose 706 H D (70-110) mg/dL - Exam Constitutional: Present: Alert, Oriented x3, Cooperative, Well developed, Well nourished, Morbidly obese ENT Exam: Present: normal ENT inspection, hearing grossly normal, pharynx normal, TMs normal Neck: Present: non-tender, full range of motion Respiratory: Present: chest non-tender, lungs clear, normal breath sounds, expiration (prolonged) Cardiovascular/Chest: Present: normal peripheral pulses, regular rate, rhythm, no chest tenderness, no edema, no gallop, no JVD, no murmur, no rub Abdomen: Present: Normal bowel sounds, soft, nontender, nondistended, no rebound tenderness, no hepatospenomegaly, no masses, obese /Rectal: Present: Exam deferred Extremity: Present: normal range of motion, non-tender, normal inspection, no pedal edema, no calf tenderness, normal capillary refill Skin Exam: Present: normal color, warm/dry Lymphatic: Present: no adenopathy 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 I will give insulin every couple of hours through the night to get her sugars down to where she is dischargeable tomorrow. She will have morning lab drawn. No other changes. - Problems/Diagnosis (1) Acute on chronic systolic CHF (congestive heart failure) Problem: Acute (2) Acute and chronic respiratory failure with hypoxia Problem: Acute (3) Advanced chronic obstructive pulmonary disease Problem: Acute (4) Morbid obesity Problem: Chronic (5) Essential hypertension Problem: Chronic (6) Polyarthralgia Problem: Chronic (7) Stage III chronic kidney disease Problem: Acute
[2020-03-13] MEDS ORDERED: INSULIN REGULAR, HUMAN 100 UNITS in NORMAL SALINE 100 ML IV PRN ×2 (19:36)
[2020-03-13] MEDS ORDERED: INSULIN REGULAR, HUMAN 100 UNITS/ML VIAL ONE (20:10)
[2020-03-13] MEDS: QUEtiapine FUMARATE 25 MG TABLET PO SCH (21:05)
[2020-03-14] MEDS: ENOXAPARIN SODIUM 40 MG/0.4 ML SYRG SC SCH (04:41)
[2020-03-14 06:24] LABS: Hemoglobin 9.9 gm/dL (12.5-16.0); Mean Cell Volume 94.8 fl (78-100); Mean Corpuscular Hemoglobin 28.4 pg (27-31); Mean Platelet Volume 10.1 fl (8-12.5); Neutrophil # 5.7 K/mm3 (1.3-6.0); Neutrophil % 65.2 % (42-75.0); Platelet Count 231 K/mm3 (150-450); Red Blood Count 3.48 M/mm3 (4.2-5.4); Red Cell Distribution Width 14.6 % (11.5-14.0); White Blood Count 8.7 K/mm3 (4.0-10.5)
[2020-03-14 06:37] LABS: Anion Gap 5.9 mmol/L (6.8-13.8); BUN/Creatinine Ratio 26.1 (9.0-21.6); Bilirubin, Total 0.2 mg/dL (0.0-1.1); Ca. Corrected For Albumin 9.7 mg/dL (8.4-10.2); Calcium * 9.2 mg/dL (7.9-10.9); Carbon Dioxide 43.6 mmol/L (24-32.6); Potassium 3.5 mmol/L (3.4-4.6); Total Protein 7.4 gm/dL (6.2-8.2)
[2020-03-14] MEDS: LEVOTHYROXINE SODIUM 125 MCG TABLET PO SCH (07:17)
[2020-03-14] MEDS: INSULIN LISPRO 100 UNITS/ML VIAL SC SCH (07:18)
--- NOTE | 2020-03-14 10:40 | DS ---
(1) Acute on chronic systolic CHF (congestive heart failure) Problem: Acute (2) Acute and chronic respiratory failure with hypoxia Problem: Acute (3) Advanced chronic obstructive pulmonary disease Problem: Acute (4) Morbid obesity Problem: Chronic (5) Essential hypertension Problem: Chronic (6) Polyarthralgia Problem: Chronic (7) Stage III chronic kidney disease Problem: Chronic Date of Discharge:: 03/14/20 Hospital Course: Jazlyn Ramirez is a 74-year-old female admitted through ER with acute congestive heart failure and acute on chronic COPD. She was treated with BiPAP and diuretics. Her breathing has improved significantly. She also has stage IIIb CKD and initially EGFR was 32. This morning is 29 but it is the only one that has been in the stage IV range. Yesterday, a caregiver brought her a bag of red licorice which she ate quite a lot. Her blood sugars jumped to 708. She received 20 units of lispro insulin and then ate dinner and her blood sugar was then 786 2 hours later. She was started on a hyperglycemic non-DKA insulin drip per protocol using high range. It has dropped hourly since then. This morning's blood sugars have all been in the 80s to low 100s. She has eaten breakfast and has had no difficulties. The insulin drip was discontinued. I caught her sleeping this morning without her BiPAP on and reminded her of the importance of having that on anytime she is going to be sleeping. She should not have oxygen administered over 2 L. She will have CO2 retention at higher flow volumes. She has been a long-term smoker but has not smoked since admission and has not requested patches for it either. She will be going to a rehab facility where hopefully she will get more active, work on some weight reduction, and improve ventilation by exercising. Her disposition is improved and her prognosis is fair. Procedures Performed: none Results and Findings: Lab Pending Results 03/11/20 00:45: Sodium 140, Plasma Sodium 143 H, Potassium 5.1 H, Chloride 99, Carbon Dioxide 31.9, Anion Gap 14.2 H, BUN 43 H D, Creatinine 1.74 H D, Est GFR (Non-Af Amer) 31 L D, BUN/Creatinine Ratio 24.7 H, Random Glucose 295 H, Calcium 9.0, Calcium Adj for Albumin 9.3, Total Bilirubin 0.2, AST 25, ALT 23, Alkaline Phosphatase 124, Troponin I Less than 0.017, Total Protein 7.2, Albumin 3.2 L 03/11/20 01:10: Urine Color Yellow, Urine Appearance Cloudy, Urine pH 5.5, Ur Specific [place] 1.020, Urine Protein 15 H, Urine Glucose (UA) 500 H, Urine Ketones Negative, Urine Blood 5 H, Urine Nitrate Negative, Urine Bilirubin Negative, Prot Sulfosalicylic Acd QNS, Urine Urobilinogen Normal, Ur Leukocyte Esterase Negative, Urine RBC None seen, Urine WBC Trace H, Ur Epithelial Cells >25 H, Urine Bacteria 1+ H, Urine Yeast Trace, Urine Culture Comments Culture to follow 03/11/20 01:15: WBC 12.4 H, RBC 3.73 L, Hgb 10.7 L, Hct 36.1 L, MCV 96.8, MCH 28.7, MCHC 29.6 L, RDW 14.2 H, Plt Count 245, MPV 10.2, Immature Gran % (Auto) 0.70 H, Immature Gran # (Auto) 0.09 H, Neutrophils % 80.0 H, Lymphocytes % 10.2 L, Monocytes % 6.6, Eosinophils % 2.3, Basophils % 0.2, Nucleated RBC % 0.0, Neutrophils # 9.9 H, Lymphocytes # 1.27 L, Monocytes # 0.8, Eosinophils # 0.3, Absolute Basophils 0.0 03/11/20 01:45: Creatine Kinase 110, B-Natriuretic Peptide 572 H 03/11/20 10:15: pCO2 85.0 H*, pO2 71.6 L, HCO3 41.7 H, Total CO2 44.3 H, Base Excess 12.5 H, ABG pH 7.31 L, ABG O2 Sat (Measured) 91.9 L 03/11/20 11:10: pCO2 71.7 H*, pO2 87.0, HCO3 33.6 H, Total CO2 35.8 H, Base Excess 5.4 H, ABG pH 7.29 L, ABG O2 Sat (Measured) 95.2 03/11/20 12:10: pCO2 74.9 H*, pO2 111.7 H, HCO3 35.1 H, Total CO2 37.4 H, Base Excess 6.6 H, ABG pH 7.29 L, ABG O2 Sat (Measured) 97.4 03/11/20 13:30: pCO2 71.0 H*, pO2 79.5 L, HCO3 34.3 H, Total CO2 36.5 H, Base Excess 6.3 H, ABG pH 7.30 L, ABG O2 Sat (Measured) 94.1 03/11/20 16:29: pCO2 67.6 H, pO2 74.9 L, HCO3 37.4 H, Total CO2 39.5 H, Base Excess 9.9 H, ABG pH 7.36, ABG O2 Sat (Measured) 94.0 03/11/20 19:23: pCO2 80.2 H*, pO2 64.3 L, HCO3 41.8 H, Total CO2 44.3 H, Base Excess 13.1 H, ABG pH 7.34 L, ABG O2 Sat (Measured) 90.0 L 03/11/20 22:40: pCO2 69.1 H, pO2 80.7 L, HCO3 37.7 H, Total CO2 39.8 H, Base Excess 10.0 H, ABG pH 7.36, ABG O2 Sat (Measured) 95.0 03/12/20 02:10: pCO2 60.0 H, pO2 71.6 L, HCO3 36.7 H, Total CO2 38.5 H, Base Excess 10.2 H, ABG pH 7.40, ABG O2 Sat (Measured) 94.0 03/12/20 07:57: WBC 11.6 H, RBC 3.95 L, Hgb 11.2 L, Hct 38.6, MCV 97.7, MCH 28.4, MCHC 29.0 L, RDW 14.4 H, Plt Count 254, MPV 9.7, Immature Gran % (Auto) 0.40, Immature Gran # (Auto) 0.05 H, Neutrophils % 73.6, Lymphocytes % 14.8 L, Monocytes % 7.6, Eosinophils % 3.2 H, Basophils % 0.4, Nucleated RBC % 0.0, Lesvia trophils # 8.5 H, Lymphocytes # 1.72, Monocytes # 0.9, Eosinophils # 0.4, Absolute Basophils 0.1 03/12/20 07:57: Sodium 141, Plasma Sodium 143 H, Potassium 3.9 D, Chloride 96 L, Carbon Dioxide 48.6 H, Anion Gap Less than 1.0 L, BUN 46 H, Creatinine 1.77 H, Est GFR (Non-Af Amer) 30 L, BUN/Creatinine Ratio 26.0 H, Random Glucose 195 H D, Calcium 9.5, Calcium Adj for Albumin 9.7, Total Bilirubin 0.4, AST 27, ALT 24, Alkaline Phosphatase 119, Total Protein 8.1, Albumin 3.3 L 03/12/20 10:05: pCO2 53.3 H, pO2 57.2 L, HCO3 31.9 H, Total CO2 33.5 H, Base Excess 5.9 H, ABG pH 7.40, ABG O2 Sat (Measured) 88.9 L 03/13/20 17:03: Random Glucose 706 H D 03/13/20 19:33: Random Glucose 787 H 03/13/20 21:50: Random Glucose 636 H 03/14/20 06:18: WBC 8.7 D, RBC 3.48 L, Hgb 9.9 L, Hct 33.0 L, MCV 94.8, MCH 28.4, MCHC 30.0 L, RDW 14.6 H, Plt Count 231, MPV 10.1, Immature Gran % (Auto) 0.30, Immature Gran # (Auto) 0.03, Neutrophils % 65.2, Lymphocytes % 20.6, Monocytes % 9.7 H, Eosinophils % 3.7 H, Basophils % 0.5, Nucleated RBC % 0.0, Neutrophils # 5.7, Lymphocytes # 1.80, Monocytes # 0.9, Eosinophils # 0.3, Absolute Basophils 0.0 03/14/20 06:18: Sodium 143 H, Plasma Sodium 143 H, Potassium 3.5, Chloride 97, Carbon Dioxide 43.6 H, Anion Gap 5.9 L, BUN 48 H, Creatinine 1.84 H, Est GFR (Non-Af Amer) 29 L, BUN/Creatinine Ratio 26.1 H, Random Glucose 107 D, Calcium 9.2, Calcium Adj for Albumin 9.7, Total Bilirubin 0.2, AST 18, ALT 21, Alkaline Phosphatase 99, Total Protein 7.4, Albumin 3.0 L Discharge Location: [facility] Disposition: [facility] Condition: Fair Face to Face Encounter completed per CMS Guidelines: No Level of Care: SNF Discharge Activity: Activity as tolerated Discharge Diet: Consistent carbs, Low salt, Renal Failure, Other - Calorie restricted Halfway Therapy: Physical Therapy, Occupation Therapy Additional Patient Instructions (free text): To [facility] for PT and OT to evaluate and treat. She should wear her positive pressure device for breathing anytime that she is sleeping including naps. She is to avoid all NSAID therapy. She should not have any IV contrast media. O2 2 L continuously per Nasal canula or bipap/cpap. Do not exceed 2 liters or 30%FIO2. Complete Home Medications List: Complete Home Medication List: Durable Medical Equipment See Dose Instructions .ROUTE .MEDSUPPLY #1 ea 02/02/19 blood sugar diagnostic See Rx Instructions .ROUTE .MEDSUPPLY #100 ea 08/12/19 lancets 30 gauge See Rx Instructions .ROUTE .MEDSUPPLY #100 ea 08/17/19 pen needle, diabetic 31 gauge x /16" See Dose Instructions .ROUTE .MEDSUPPLY #100 ea 08/19/19 ALPRAZolam [Xanax] 1 mg PO DAILY PRN #30 03/14/20 Acetaminophen 500 mg PO Q6H PRN #120 tab 03/14/20 Albuterol Sulfate [Albuterol Sulfate Hfa] 8.5 gm INHALATION Q4H PRN #1 03/14/20 Aspirin [Aspirin EC] 81 mg PO DAILY #100 03/14/20 Budesonide/Formoterol Fumarate [Symbicort 160-4.5 Mcg Inhaler] 2 puff INHALATION BID #1 03/14/20 Escitalopram Oxalate 5 mg PO DAILY #30 03/14/20 Escitalopram Oxalate [Lexapro] 20 mg PO DAILY #30 03/14/20 Ferrous Sulfate 325 mg PO DAILY #30 03/14/20 Hydrochlorothiazide 12.5 mg PO DAILY #30 tab 03/14/20 Insulin Aspart [Novolog Flexpen] 24 unit SUBCUT BID #15 ml 03/14/20 Insulin Glargine,Hum.rec.anlog [Lantus Solostar] 38 unit SUBCUT DAILY #15 ml 03/14/20 Insulin Glargine,Hum.rec.anlog [Lantus] 46 units SC DAILY vial 03/14/20 Insulin Lispro [Humalog] 0 units SC ACHSINS vial 03/14/20 Irbesartan 150 mg PO DAILY #30 tab 03/14/20 Levothyroxine Sodium [Tirosint] 125 mcg PO DAILY #45 cap 03/14/20 Mecobalamin [B-12] 5,000 mcg PO DAILY #100 tab 03/14/20 Nebivolol HCl [Bystolic] 10 mg PO DAILY #30 tab 03/14/20 Nystatin 1 ea MC TID #1 bottle 03/14/20 Nystatin [Mycostatin Powder] 1 appl TOPICAL BID #1 btl 03/14/20 Pantoprazole Sodium [Protonix] 40 mg PO DAILY #30 03/14/20 QUEtiapine FUMARATE [Seroquel] 75 mg PO HS #30 03/14/20 Rosuvastatin Calcium 10 mg PO DAILY #30 tab 03/14/20 Tiotropium Proctor [Spiriva] 1 cap INHALATION DAILY #1 inhaler 03/14/20 traZODone HCL [Trazodone HCl] 50 mg PO HS #30 03/14/20 Forms: Patient Portal Registration
[2020-03-14] MEDS: FLUTICASONE PROPION/SALMETEROL 14 PUFF DISK.W.DEV IH SCH (10:52)
[2020-03-14] MEDS: PANTOPRAZOLE SODIUM 40 MG in NORMAL SALINE 100 ML IV SCH (10:52)
[2020-03-14] MEDS: FUROSEMIDE 10 MG/ML VIAL IV SCH (10:53)
[2020-03-14] MEDS: INSULIN GLARGINE,HUM.REC.ANLOG 100 UNITS/ML VIAL SC SCH (10:54)
[2020-03-14] MEDS: LOSARTAN POTASSIUM 50 MG TABLET PO SCH (10:55)
[2020-03-14] MEDS: ESCITALOPRAM OXALATE 10 MG TAB PO SCH ×2 (10:55)
[2020-03-14] MEDS: NYSTATIN 15 APPL BTL TP SCH (10:56)
[2020-03-14] MEDS: TIOTROPIUM BROMIDE 5 CAP INHALER IH SCH (10:56)
[2020-03-14 18:45] VITALS: BP 136/64
== END 2020-03-14 13:15 | DRG 291 ==
LOC: ER 00:13 → MS 03:51
PROVIDERS: ADMIT Family Medicine; ATTEND Family Medicine
CPT/HCPCS: 36415; 36600; 71010; 71045; 71250; 72125; 73590; 80053; 81001; 82550; 82803; 82947; 83519; 83880; 84484; 85025; 87086; 87106; 93005; 94660; 96365; 96367; 96372; 96375; 97110; 97116; 97161; 99285; C9803; U0001

== ENCOUNTER 2020-09-13 17:00 | Observation (INO) ==
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
[2020-09-13 17:44] LABS: Hematocrit 37.1 % (37.0-47.0); Hemoglobin 10.4 gm/dL (12.5-16.0); Mean Cell Volume 97.9 fl (78-100); Mean Corpuscular Hemoglobin 27.4 pg (27-31); Mean Platelet Volume 10.2 fl (8-12.5); Neutrophil # 8.7 K/mm3 (1.3-6.0); Neutrophil % 77.5 % (42-75.0); Platelet Count 250 K/mm3 (150-450); Red Blood Count 3.79 M/mm3 (4.2-5.4); Red Cell Distribution Width 15.8 % (11.5-14.0); White Blood Count 11.2 K/mm3 (4.0-10.5)
[2020-09-13 17:53] LABS: Albumin * 2.7 gm/dl (3.4-5.0); Anion Gap 4.9 mmol/L (6.8-13.8); BUN/Creatinine Ratio 25.2 (9.0-21.6); Bilirubin, Total 0.3 mg/dL (0.0-1.1); Ca. Corrected For Albumin 9.3 mg/dL (8.4-10.2); Calcium * 8.6 mg/dL (7.9-10.9); Carbon Dioxide 41.2 mmol/L (24-32.6); Potassium 5.1 mmol/L (3.4-4.6); Total Protein 7.3 gm/dL (6.2-8.2)
[2020-09-13 18:47] LABS: Urine Bilirubin Negative (NEGATIVE); Urine Ketone Negative (NEGATIVE); Urine Nitrite Negative (NEGATIVE); Urine Protein 30 mg/dL (NEGATIVE); Urine Specific Gravity 1.025 SP.GR. (1.005-1.010); Urine Urobilinogen Normal (NORMAL)
[2020-09-13 19:04] LABS: Urine Appearance Clear (CLEAR); Urine Bacteria TRACE; Urine Blood 5 /ul (NEGATIVE); Urine Color Yellow; Urine RBC 0-5 /hpf (0-5); Urine WBC 0-5 /hpf (0-5)
[2020-09-13] MEDS ORDERED: NORMAL SALINE 1,000 ML IV ONE (19:32)
[2020-09-13] MEDS: traZODone HCL 50 MG TABLET PO SCH (23:48)
[2020-09-13] MEDS: QUEtiapine FUMARATE 25 MG TABLET PO SCH (23:48)
--- NOTE | 2020-09-13 23:48 | HP ---
Chief Complaint - Chief Complaint Date of Service: 09/13/20 Time of Service: 23:48 Chief Complaint: Weakness, falls History of Present Illness: 74-year-old female presented to the hospital via ambulance due to recurrent falls and weakness. She states is been going on for last 6 months and can only take care of her self. She time getting up and had well in the EMS to do so. Patient frustrated with the inability to care for self. Patient here because she wants [facility] placement if possible. Patient has a history of morbid obesity, hypertension, chronic kidney disease, hyperlipidemia, insulin-dependent type 2 diabetes, chronic supplemental oxygen use, hypothyroidism, anxiety, COPD, and sleep apnea. In the ER her lab work showed her to have a mild elevated white count at 11.2 as well as mild anemia 10.4. There is a slight shift but she denies any signs or symptoms of infection. Potassium is mildly elevated at 5.1. Her kidney function is at baseline. Patient stable on 3 L nasal cannula, other vital signs are stable. Patient is fairly weak on exam, unsure how much is effort related though. It is a generalized weakness likely due to body habitus and deconditioning. Medical History (Last Reviewed 09/13/20 @ 22:09 by Jenny Sanchez RN) Morbid obesity (Chronic) Essential hypertension (Chronic) Stage III chronic kidney disease (Chronic) Hypoxemia (Chronic) Joao continues to use a BiPAP to which she is well adapted and supplemental continuous oxygen. She continues to use nebulizer treatments 3- 4 times daily. Post-menopause bleeding (Acute) Jazlyn is to have a D&C in [facility] with Dr. Joyner next week. Hysteroscopy revealed a thickened endometrium. Polyarthralgia (Chronic) Muscle stiffness (Acute) Shoulder pain (Acute) Hyperlipidemia LDL goal <70 (Chronic) UTI (urinary tract infection) (Acute) Fall (Acute) Diabetes mellitus, insulin dependent (IDDM), uncontrolled (Chronic) BS better controlled lately. Dependence on supplemental oxygen (Chronic) She has a home concentrator and a portable concentrator. Hepatic steatosis (Chronic) Hypothyroidism (Acute) Anxiety Arthritis Back pain COPD (chronic obstructive pulmonary disease) Congenital heart disease Depressed Diabetes H/O bone density study Onset Date: ~2012 H/O mammogram Onset Date: ~2016 HTN (hypertension) OCD (obsessive compulsive disorder) Sleep apnea CPAP Surgical History: Surgical History (Last Reviewed 09/13/20 @ 22:09 by Jenny Sanchez RN) History of colonoscopy Onset Date: ~2013 History of cholecystectomy Onset Date: ~1997 [facility] History of total knee arthroplasty Onset Date: ~[address] Roberto in [place] [address] Cummings at [facility] 2002 Family History: Family History (Last Reviewed 09/13/20 @ 22:09 by Jenny Sanchez RN) Mother , 80 Cancer breast Father , 68 Cancer colon Aneurysm brain Brother , 46 Sarcoidosis Other Family history non-contributory Social History: (Last Reviewed 09/13/20 @ 22:09 by Jenny Sanchez RN) Social History: Marital status: / lives independently: No household members: other number of children: 2 current occupational status: retired Highest level of school completed/degree received: high school graduate Service: No Tobacco: Smoking Status: Former smoker Alcohol: alcohol intake: never Substance Use: substance use type: does not use Dietary Habits: caffeine: Yes Type: coffee Pets: pets and animals: cat(s) Review Of Systems (GEN) - Review of Systems Generalized/Overall Review: Present: Weakness. Absent: Chills, Fever EENTM: Present: No Symptoms Reported Respiratory: Present: No Symptoms Reported Cardiac: Present: No Symptoms Reported Abdominal: Present: No Symptoms Reported Genitourinary: Present: No Symptoms Reported Musculoskeletal: Present: No Symptoms Reported Skin: Present: No Symptoms Reported Endocrine: Present: No Symptoms Reported Immunizations: IMMUNIZATION HX Immunizations Up to Date Yes History of Influenza Vaccine No Hx Pneumococcal Vaccination No Allergies/Adverse Reactions: Allergies Allergy/AdvReac Type Severity Reaction Status Date / Time Sulfa (Sulfonamide Allergy Unknown Verified 09/13/20 22:09 Antibiotics) Home Medications: HOME MEDICATIONS Durable Medical Equipment See Dose Instructions .ROUTE .MEDSUPPLY #1 ea 02/02/19 [Last Taken Unknown] blood sugar diagnostic See Rx Instructions .ROUTE .MEDSUPPLY #100 ea 08/12/19 [Last Taken Unknown] lancets 30 gauge See Rx Instructions .ROUTE .MEDSUPPLY #100 ea 08/17/19 [Last Taken Unknown] pen needle, diabetic 31 gauge x 5/16" See Dose Instructions .ROUTE .MEDSUPPLY #100 ea 08/19/19 [Last Taken Unknown] Acetaminophen 500 mg PO Q6H PRN #120 tab 07/01/20 [Last Taken Unknown] Albuterol Sulfate [Albuterol Sulfate Hfa] 8.5 gm INHALATION Q4H PRN #1 03/14/20 [Last Taken Unknown] Aspirin [Aspirin EC] 81 mg PO DAILY #100 03/14/20 [Last Taken Unknown] Mecobalamin [B-12] 5,000 mcg PO DAILY #100 tab 03/14/20 [Last Taken Unknown] Nystatin 1 ea MC TID #1 bottle 03/14/20 [Last Taken Unknown] Nystatin [Mycostatin Powder] 1 appl TOPICAL BID #1 btl 03/14/20 [Last Taken Unknown] blood sugar diagnostic See Rx Instructions .ROUTE .MEDSUPPLY #10 ea 04/12/20 [Last Taken Unknown] blood-glucose meter See Rx Instructions .ROUTE .MEDSUPPLY #1 ea 04/12/20 [Last Taken Unknown] lancets 32 gauge See Rx Instructions .ROUTE .MEDSUPPLY #100 ea 04/12/20 [Last Taken Unknown] budesonide-formoterol HFA 160 mcg-4.5 mcg/actuation aerosol inhaler 2 puff INHALATION BID #10.2 g 09/04/20 [Last Taken Unknown] escitalopram oxalate 5 mg tablet 5 mg PO DAILY #30 tab 09/04/20 [Last Taken Unk nown] ferrous sulfate 324 mg (65 mg iron) tablet,delayed release 325 mg PO DAILY #30 tab 09/04/20 [Last Taken Unknown] hydrochlorothiazide 12.5 mg tablet 12.5 mg PO DAILY #30 tab 09/04/20 [Last Taken Unknown] irbesartan 150 mg tablet 150 mg PO DAILY #30 tab 09/04/20 [Last Taken Unknown] levothyroxine 125 mcg capsule 125 mcg PO DAILY #90 cap 09/04/20 [Last Taken Unknown] nebivolol 10 mg tablet 10 mg PO DAILY #30 tab 09/04/20 [Last Taken Unknown] pantoprazole 40 mg tablet,delayed release 40 mg PO DAILY #30 tab 09/04/20 [Last Taken Unknown] quetiapine 25 mg tablet 25 mg PO HS #30 tab 09/04/20 [Last Taken Unknown] rosuvastatin 10 mg tablet 10 mg PO DAILY #30 tab 09/04/20 [Last Taken Unknown] tiotropium bromide 18 mcg capsule with inhalation device 1 cap INHALATION DAILY #1 inhaler 09/04/20 [Last Taken Unknown] trazodone 50 mg tablet 50 mg PO HS #30 tab 09/04/20 [Last Taken Unknown] Alprazolam 1 mg PO DAILY PRN 09/13/20 [Last Taken Unknown] Escitalopram Oxalate [Lexapro] 20 mg PO DAILY 09/13/20 [Last Taken Unknown] Insulin Aspart [Insulin Aspart Flexpen] 24 unit SUBCUT BIDWM 09/13/20 [Last Taken Unknown] Silver Sulfadiazine [Silvadene] 1 appl TP BID 09/14/20 [Last Taken Unknown] Exam - Exam Vital Signs: Vital Signs - Last Taken Temp 37.0 C 09/13/20 20:16 Pulse 66 09/13/20 20:44 Resp 18 09/13/20 20:16 BP 156/68 H 09/13/20 20:16 Pulse Ox 92 L 09/13/20 20:16 Constitutional: Present: Alert, Oriented x3, Elderly, Morbidly obese Eye Exam: bilateral eye: normal inspection, EOMI Neck: Present: non-tender, supple Back Exam: Present: normal inspection, no CVA tenderness Respiratory: Present: lungs clear, decreased breath sounds - Due to effort and body habitus Cardiovascular/Chest: Present: regular rate, rhythm, no murmur Abdomen: Present: soft, nontender, nondistended Extremity: Present: lower extremity edema - Bilaterally, mid lechuga, nonpitting Skin Exam: Present: normal color, warm/dry Appearance: Present: appropriate appearance, appropriate insight Thoughts: Present: normal thought pattern, normal mood /affect Diagnostic Studies: Abnormal Lab Results 09/13/20 09/13/20 09/13/20 Range/Units 17:30 17:30 18:22 WBC 11.2 H (4.0-10.5) K/mm3 RBC 3.79 L (4.2-5.4) M/mm3 Hgb 10.4 L (12.5-16.0) gm/dL MCHC 28.0 L (32-36) g/dl RDW 15.8 H (11.5-14.0) % Immature Gran # (Auto) 0.05 H (0.000-0.0310) K/mm3 Neutrophils % 77.5 H (42-75.0) % Lymphocytes % 11.5 L (20-51) % Neutrophils # 8.7 H (1.3-6.0) K/mm3 Lymphocytes # 1.29 L (1.5-3.5) k/mm3 Sodium 143 H (132-142) mmol/L Plasma Sodium 146 H (130-142) mmol/L Potassium 5.1 H D (3.4-4.6) mmol/L Carbon Dioxide 41.2 H (24-32.6) mmol/L Anion Gap 4.9 L (6.8-13.8) mmol/L BUN 37 H (3-23) mg/dL Creatinine 1.47 H (0.4-1.4) mg/dL Est GFR (Non-Af Amer) 37 L (60-130) mL/min BUN/Creatinine Ratio 25.2 H (9.0-21.6) Random Glucose 262 H (70-110) mg/dL Albumin 2.7 L (3.4-5.0) gm/dl Urine Protein 30 H (NEGATIVE) mg/dL Urine Blood 5 H (NEGATIVE) /ul Laboratory Results WBC 11.2 K/mm3 (4.0-10.5) H 09/13/20 17:30 RBC 3.79 M/mm3 (4.2-5.4) L 09/13/20 17:30 Hgb 10.4 gm/dL (12.5-16.0) L 09/13/20 17:30 Hct 37.1 % (37.0-47.0) 09/13/20 17:30 MCV 97.9 fl (78-100) 09/13/20 17:30 MCH 27.4 pg (27-31) 09/13/20 17:30 MCHC 28.0 g/dl (32-36) L 09/13/20 17:30 RDW 15.8 % (11.5-14.0) H 09/13/20 17:30 Plt Count 250 K/mm3 (150-450) 09/13/20 17:30 MPV 10.2 fl (8-12.5) 09/13/20 17:30 Immature Gran % (Auto) 0.40 % (0.001-0.429) 09/13/20 17:30 Immature Gran # (Auto) 0.05 K/mm3 (0.000-0.0310) H 09/13/20 17:30 Neutrophils % 77.5 % (42-75.0) H 09/13/20 17:30 Lymphocytes % 11.5 % (20-51) L 09/13/20 17:30 Monocytes % 8.8 % (0.0-9) 09/13/20 17:30 Eosinophils % 1.4 % (0.0-3.0) 09/13/20 17: Basophils % 0.4 % (0.0-1.0) 09/13/20 17:30 Nucleated RBC % 0.0 k/mm3 (0-1) 09/13/20 17:30 Neutrophils # 8.7 K/mm3 (1.3-6.0) H 09/13/20 17:30 Lymphocytes # 1.29 k/mm3 (1.5-3.5) L 09/13/20 17:30 Monocytes # 1.0 k/mm3 (0.0-1.0) 09/13/20 17: Eosinophils # 0.2 k/mm3 (0.0-0.7) 09/13/20 17:30 Absolute Basophils 0.0 k/mm3 (0.0-0.1) 09/13/20 17:30 Sodium 143 mmol/L (132-142) H 09/13/20 17:30 Plasma Sodium 146 mmol/L (130-142) H 09/13/20 17:30 Potassium 5.1 mmol/L (3.4-4.6) H D 09/13/20 17:30 Chloride 102 mmol/L (97-106) 09/13/20 17:30 Carbon Dioxide 41.2 mmol/L (24-32.6) H 09/13/20 17:30 Anion Gap 4.9 mmol/L (6.8-13.8) L 09/13/20 17:30 BUN 37 mg/dL (3-23) H 09/13/20 17:30 Creatinine 1.47 mg/dL (0.4-1.4) H 09/13/20 17:30 Est GFR (Non-Af Amer) 37 mL/min (60-130) L 09/13/20 17:30 BUN/Creatinine Ratio 25.2 (9.0-21.6) H 09/13/20 17:30 Random Glucose 262 mg/dL (70-110) H 09/13/20 17:30 Calcium 8.6 mg/dL (7.9-10.9) 09/13/20 17:30 Calcium Adj for Albumin 9.3 mg/dL (8.4-10.2) 09/13/20 17:30 Total Bilirubin 0.3 mg/dL (0.0-1.1) 09/13/20 17:30 AST 24 U/L (0-48) 09/13/20 17:30 ALT 22 U/L (19-67) 09/13/20 17:30 Alkaline Phosphatase 103 U/L (50-170) 09/13/20 17:30 Total Protein 7.3 gm/dL (6.2-8.2) 09/13/20 17:30 Albumin 2.7 gm/dl (3.4-5.0) L 09/13/20 17:30 Urine Color Yellow 09/13/20 18:22 Urine Appearance Clear (CLEAR) 09/13/20 18:22 Urine pH 6.0 pH (5.0-7.0) 09/13/20 18:22 Ur Specific Colbert 1.025 SP.GR. (1.005-1.010) 09/13/20 18:22 Urine Protein 30 mg/dL (NEGATIVE) H 09/13/20 18:22 Urine Glucose (UA) Negative mg/dL (NEGATIVE) 09/13/20 18:22 Urine Ketones Negative mg/dL (NEGATIVE) 09/13/20 18:22 Urine Blood 5 /ul (NEGATIVE) H 09/13/20 18:22 Urine Nitrate Negative (NEGATIVE) 09/13/20 18:22 Urine Bilirubin Negative mg/dl (NEGATIVE) 09/13/20 18:22 Urine Urobilinogen Normal EU/dl (NORMAL) 09/13/20 18:22 Ur Leukocyte Esterase Negative /ul (NEGATIVE) 09/13/20 18:22 Urine RBC 0-5 /hpf (0-5) 09/13/20 18:22 Urine WBC 0-5 /hpf (0-5) 09/13/20 18:22 Ur Epithelial Cells 0-5 /hpf (0-5) 09/13/20 18:22 Urine Bacteria Trace (NONE) 09/13/20 18:22 Urine Culture Comments Culture to follow 09/13/20 18:22 SARS-CoV-2 (PCR) Not detected (NotDetected) 09/13/20 18:28 Assessment/Plan - Narrative Narrative: Patient unable to care for self at this time. Patient admitted due to generalized weakness, hoping for placement which due to her exam I think is appropriate. Ordered physical therapy to evaluate her. She will likely need long-term placement. Lab work fairly benign though she was mildly hyperkalemic at 5.1. Mildly anemic at 10.4. Mildly leukocytotic at 11.2. Negative UTI, negative SARS. Continue current medications for other comorbidities. Consistent carb diet ordered as well as blood glucose monitoring. Sliding scale ordered. SCDs to be worn while in bed. We will wean her baseline O2 usage which is 2 to 3 L at night. Maintain sats between 88 to 93%. VSS and sjhe is afebrile. - Assessment/Plan (1) Morbid obesity Problem: Chronic (2) Essential hypertension Problem: Chronic (3) Generalized weakness Problem: Acute (4) Hypoxemia Problem: Chronic
[2020-09-14] MEDS ORDERED: ALBUTEROL SULFATE 2.5 MG/0.5 ML VIAL.NEB IH PRN (00:33)
[2020-09-14] MEDS: INSULIN GLARGINE,HUM.REC.ANLOG 100 UNITS/ML VIAL SC SCH ×2 (00:45→20:18)
[2020-09-14 07:12] LABS: Anion Gap 8.5 mmol/L (6.8-13.8); BUN/Creatinine Ratio 22.9 (9.0-21.6); Calcium * 9.2 mg/dL (7.9-10.9); Carbon Dioxide 38.4 mmol/L (24-32.6); Estimated Creat Clear 32.7; Potassium 4.9 mmol/L (3.4-4.6)
[2020-09-14] MEDS: INSULIN LISPRO 100 UNITS/ML VIAL SC SCH ×3 (07:58→18:07)
[2020-09-14] MEDS ORDERED: NYSTATIN MC SCH (09:00)
[2020-09-14] MEDS ORDERED: FLU VACC QS2020-21(6MOS UP)/PF 60 MCG/0.5 ML SYRINGE IM ONE (09:00)
[2020-09-14] MEDS ORDERED: ROSUVASTATIN CALCIUM 10 MG TABLET PO SCH (09:00)
[2020-09-14] MEDS: LEVOTHYROXINE SODIUM 125 MCG TABLET PO SCH (09:28)
[2020-09-14] MEDS: LOSARTAN POTASSIUM 50 MG TABLET PO SCH (09:28)
[2020-09-14] MEDS: ASPIRIN 81 MG TABLET.DR PO SCH (09:28)
[2020-09-14] MEDS: ESCITALOPRAM OXALATE 5 MG TABLET PO SCH (09:29)
[2020-09-14] MEDS: ESCITALOPRAM OXALATE 10 MG TAB PO SCH (09:29)
[2020-09-14] MEDS: HYDROCHLOROTHIAZIDE 12.5 MG CAPSULE PO SCH (09:29)
[2020-09-14] MEDS: PANTOPRAZOLE SODIUM 40 MG TABLET.EC PO SCH (09:29)
[2020-09-14] MEDS: FLUTICASONE PROPION/SALMETEROL 14 PUFF DISK.W.DEV IH SCH ×2 (09:33→20:16)
[2020-09-14] MEDS: NYSTATIN 15 APPL BTL TP SCH ×2 (09:34→20:17)
[2020-09-14] MEDS: TIOTROPIUM BROMIDE 5 CAP INHALER IH SCH (09:34)
--- NOTE | 2020-09-14 16:51 | PN ---
Subjective - Date and Time Seen Date: 09/14/20 Time: 16:48 Subjective Narrative: Patient feeling better today. Still with weakness but no other concerns. Feels like he might actually little better today. Her vital signs have been stable and she been afebrile. No acute events overnight. Awaiting placement. Objective - Review of Systems Generalized/Overall Review: Reports: Weakness. Denies: Chills, Fever EENTM: Reports: No Symptoms Reported Respiratory: Reports: Shortness of Breath. Denies: Cough Cardiac: Reports: Edema. Denies: Chest Pain Abdominal: Reports: No Symptoms Reported Genitourinary Symptoms: Reports: No Symptoms Reported Musculoskeletal Complaints: Reports: No Symptoms Reported Neurological: Reports: No Symptoms Reported Skin: Reports: No Symptoms Reported - Vitals Vitals: Last Vital Signs Temp 36.8 C 09/14/20 14:32 Pulse 65 09/14/20 14:32 Resp 18 09/14/20 14:32 BP 148/95 H 09/14/20 14:32 Pulse Ox 98 09/14/20 14:32 - Abnormal Lab Findings Abnormal Lab Findings: Abnormal Lab Results 09/13/20 09/13/20 09/13/20 Range/Units 17:30 17:30 18:22 WBC 11.2 H (4.0-10.5) K/mm3 RBC 3.79 L (4.2-5.4) M/mm3 Hgb 10.4 L (12.5-16.0) gm/dL MCHC 28.0 L (32-36) g/dl RDW 15.8 H (11.5-14.0) % Immature Gran # (Auto) 0.05 H (0.000-0.0310) K/mm3 Neutrophils % 77.5 H (42-75.0) % Lymphocytes % 11.5 L (20-51) % Neutrophils # 8.7 H (1.3-6.0) K/mm3 Lymphocytes # 1.29 L (1.5-3.5) k/mm3 Sodium 143 H (132-142) mmol/L Plasma Sodium 146 H (130-142) mmol/L Potassium 5.1 H D (3.4-4.6) mmol/L Carbon Dioxide 41.2 H (24-32.6) mmol/L Anion Gap 4.9 L (6.8-13.8) mmol/L BUN 37 H (3-23) mg/dL Creatinine 1.47 H (0.4-1.4) mg/dL Est GFR (Non-Af Amer) 37 L (60-130) mL/min BUN/Creatinine Ratio 25.2 H (9.0-21.6) Random Glucose 262 H (70-110) mg/dL Albumin 2.7 L (3.4-5.0) gm/dl Urine Protein 30 H (NEGATIVE) mg/dL Urine Blood 5 H (NEGATIVE) /ul 09/14/20 Range/Units 06:45 WBC (4.0-10.5) K/mm3 RBC (4.2-5.4) M/mm3 Hgb (12.5-16.0) gm/dL MCHC (32-36) g/dl RDW (11.5-14.0) % Immature Gran # (Auto) (0.000-0.0310) K/mm3 Neutrophils % (42-75.0) % Lymphocytes % (20-51) % Neutrophils # (1.3-6.0) K/mm3 Lymphocytes # (1.5-3.5) k/mm3 Sodium 143 H (132-142) mmol/L Plasma Sodium 144 H (130-142) mmol/L Potassium 4.9 H (3.4-4.6) mmol/L Carbon Dioxide 38.4 H (24-32.6) mmol/L Anion Gap (6.8-13.8) mmol/L BUN 32 H (3-23) mg/dL Creatinine (0.4-1.4) mg/dL Est GFR (Non-Af Amer) 39 L (60-130) mL/min BUN/Creatinine Ratio 22.9 H (9.0-21.6) Random Glucose 172 H D (70-110) mg/dL Albumin (3.4-5.0) gm/dl Urine Protein (NEGATIVE) mg/dL Urine Blood (NEGATIVE) /ul - Exam Constitutional: Present: Alert, Oriented x3, Morbidly obese Respiratory: Present: lungs clear, normal breath sounds, decreased breath sounds - Due to habitus Cardiovascular/Chest: Present: no murmur, no rub, edema Abdomen: Present: soft, nontender, nondistended, no rebound tenderness Skin Exam: Present: normal color, warm/dry Appearance: Present: appropriate appearance, appropriate insight Thoughts: Present: normal thought pattern, normal mood /affect Assessment/Plan Plan Narrative: Continue with current treatment plan. Patient stable and feeling okay. Waiting for PT evaluation. Patient's blood sugars elevated but not terribly bad. Patient's other vital signs are within normal limits. Nurse to call questions or concerns. - Problems/Diagnosis (1) Morbid obesity Problem: Chronic (2) Essential hypertension Problem: Chronic (3) Generalized weakness Problem: Acute (4) Hypoxemia Problem: Chronic
[2020-09-14] MEDS: ROSUVASTATIN CALCIUM 10 MG TABLET PO SCH (20:17)
[2020-09-14] MEDS: traZODone HCL 50 MG TABLET PO SCH (20:17)
[2020-09-14] MEDS: QUEtiapine FUMARATE 25 MG TABLET PO SCH (20:18)
[2020-09-14] MEDS ORDERED: traZODone HCL 50 MG TABLET PO SCH (21:00)
[2020-09-15] MEDS: LEVOTHYROXINE SODIUM 125 MCG TABLET PO SCH (07:35)
[2020-09-15] MEDS: INSULIN LISPRO 100 UNITS/ML VIAL SC SCH ×5 (07:36→17:03)
[2020-09-15] MEDS: FLUTICASONE PROPION/SALMETEROL 14 PUFF DISK.W.DEV IH SCH ×2 (08:51→20:19)
[2020-09-15] MEDS: LOSARTAN POTASSIUM 50 MG TABLET PO SCH (08:53)
[2020-09-15] MEDS: ASPIRIN 81 MG TABLET.DR PO SCH (08:53)
[2020-09-15] MEDS: ESCITALOPRAM OXALATE 10 MG TAB PO SCH (08:53)
[2020-09-15] MEDS: TIOTROPIUM BROMIDE 5 CAP INHALER IH SCH (08:54)
[2020-09-15] MEDS: PANTOPRAZOLE SODIUM 40 MG TABLET.EC PO SCH (08:54)
[2020-09-15] MEDS: HYDROCHLOROTHIAZIDE 12.5 MG CAPSULE PO SCH (08:54)
[2020-09-15] MEDS: ESCITALOPRAM OXALATE 5 MG TABLET PO SCH (08:54)
[2020-09-15] MEDS: NYSTATIN 15 APPL BTL TP SCH ×2 (08:58→20:20)
[2020-09-15] MEDS: INSULIN GLARGINE,HUM.REC.ANLOG 100 UNITS/ML VIAL SC SCH (20:19)
[2020-09-15] MEDS: traZODone HCL 50 MG TABLET PO SCH (20:19)
[2020-09-15] MEDS: ROSUVASTATIN CALCIUM 10 MG TABLET PO SCH (20:19)
[2020-09-15] MEDS: QUEtiapine FUMARATE 25 MG TABLET PO SCH (20:20)
--- NOTE | 2020-09-16 05:49 | PN ---
Subjective - Date and Time Seen Date: 09/15/20 Time: 10:45 Subjective Narrative: Jazlyn reports unable to walk, weak. Unsafe at home. She reports legs are not strong and she has hip and foot pain. Objective - Vitals Vitals: Last Vital Signs Temp 36.9 C 09/16/20 02:30 Pulse 78 09/16/20 02:30 Resp 20 09/16/20 02:30 BP 146/58 09/16/20 02:30 Pulse Ox 91 L 09/16/20 02:30 - Exam Constitutional: Present: Alert, Oriented x3, Cooperative ENT Exam: Present: hearing grossly normal Respiratory: Present: lungs clear, normal breath sounds Cardiovascular/Chest: Present: regular rate, rhythm, no murmur Abdomen: Present: Normal bowel sounds, soft, nontender, nondistended Skin Exam: Present: normal color, warm/dry, no cyanosis Appearance: Present: appropriate appearance, appropriate insight Eye contact: Present: cooperative, good eye contact, normal speech Thoughts: Present: normal thought pattern, no apparent hallucination Assessment/Plan Plan Narrative: Continues to be unable to ambulate. Needs strengthening. Needs to be stronger before going home or going to care home due to fall risk. - Problems/Diagnosis (1) Fall Problem: Acute Qualifiers: (2) Generalized weakness Problem: Acute (3) Morbid obesity Problem: Chronic
[2020-09-16] MEDS: LEVOTHYROXINE SODIUM 125 MCG TABLET PO SCH (06:55)
[2020-09-16] MEDS: INSULIN LISPRO 100 UNITS/ML VIAL SC SCH ×5 (08:04→17:32)
[2020-09-16] MEDS: FLUTICASONE PROPION/SALMETEROL 14 PUFF DISK.W.DEV IH SCH ×2 (08:05→20:26)
[2020-09-16] MEDS: TIOTROPIUM BROMIDE 5 CAP INHALER IH SCH (08:06)
[2020-09-16] MEDS: PANTOPRAZOLE SODIUM 40 MG TABLET.EC PO SCH (08:09)
[2020-09-16] MEDS: ASPIRIN 81 MG TABLET.DR PO SCH (08:09)
[2020-09-16] MEDS: ESCITALOPRAM OXALATE 10 MG TAB PO SCH (08:10)
[2020-09-16] MEDS: HYDROCHLOROTHIAZIDE 12.5 MG CAPSULE PO SCH (08:10)
[2020-09-16] MEDS: NYSTATIN 15 APPL BTL TP SCH ×2 (08:10→20:28)
[2020-09-16] MEDS: LOSARTAN POTASSIUM 50 MG TABLET PO SCH (08:10)
[2020-09-16] MEDS: ESCITALOPRAM OXALATE 5 MG TABLET PO SCH (08:10)
[2020-09-16] MEDS: ACETAMINOPHEN 500 MG TABLET PO PRN ×2 (08:13→20:28)
[2020-09-16] MEDS: ROSUVASTATIN CALCIUM 10 MG TABLET PO SCH (20:27)
[2020-09-16] MEDS: QUEtiapine FUMARATE 25 MG TABLET PO SCH (20:27)
[2020-09-16] MEDS: traZODone HCL 50 MG TABLET PO SCH (20:28)
[2020-09-16] MEDS: INSULIN GLARGINE,HUM.REC.ANLOG 100 UNITS/ML VIAL SC SCH (20:29)
--- NOTE | 2020-09-16 23:22 | PN ---
Subjective - Date and Time Seen Date: 09/16/20 Time: 09:00 Subjective Narrative: Jazlyn is unable to bear weight on left foot and reports unable to care for herself at home. She requests going to residential for therapy. Will have her be evaluated with therapy tomorrow. Objective - Vitals Vitals: Last Vital Signs Temp 36.5 C 09/16/20 18:16 Pulse 67 09/16/20 18:16 Resp 18 09/16/20 18:16 BP 134/70 09/16/20 18:16 Pulse Ox 2 L 09/16/20 18:16 - Exam Constitutional: Present: Alert, Oriented x3, Cooperative ENT Exam: Present: hearing grossly normal Respiratory: Present: lungs clear, normal breath sounds, no respiratory distress Cardiovascular/Chest: Present: regular rate, rhythm, no murmur Abdomen: Present: Normal bowel sounds, soft, nontender, nondistended Skin Exam: Present: normal color, warm/dry, no cyanosis Appearance: Present: appropriate appearance, appropriate insight Assessment/Plan Plan Narrative: Unable to discharge to home due to unsafe at home and unable to ambulate due to left foot pain and left hip pain. Will have her work with therapy tomorrow and look into discharge to SNF. - Problems/Diagnosis (1) Fall Problem: Acute Qualifiers: (2) Generalized weakness Problem: Acute (3) Morbid obesity Problem: Chronic
[2020-09-17] MEDS: LEVOTHYROXINE SODIUM 125 MCG TABLET PO SCH (07:03)
[2020-09-17] MEDS: ACETAMINOPHEN 500 MG TABLET PO PRN ×2 (07:14→19:28)
[2020-09-17] MEDS: INSULIN LISPRO 100 UNITS/ML VIAL SC SCH ×5 (07:17→16:50)
[2020-09-17] MEDS: FLUTICASONE PROPION/SALMETEROL 14 PUFF DISK.W.DEV IH SCH ×2 (09:39→21:18)
[2020-09-17] MEDS: TIOTROPIUM BROMIDE 5 CAP INHALER IH SCH (09:40)
[2020-09-17] MEDS: ESCITALOPRAM OXALATE 5 MG TABLET PO SCH (09:40)
[2020-09-17] MEDS: ASPIRIN 81 MG TABLET.DR PO SCH (09:40)
[2020-09-17] MEDS: PANTOPRAZOLE SODIUM 40 MG TABLET.EC PO SCH (09:41)
[2020-09-17] MEDS: ESCITALOPRAM OXALATE 10 MG TAB PO SCH (09:42)
[2020-09-17] MEDS: LOSARTAN POTASSIUM 50 MG TABLET PO SCH (09:42)
[2020-09-17] MEDS: NYSTATIN 15 APPL BTL TP SCH ×2 (09:43→21:19)
[2020-09-17] MEDS: HYDROCHLOROTHIAZIDE 12.5 MG CAPSULE PO SCH (09:44)
[2020-09-17] MEDS: traZODone HCL 50 MG TABLET PO SCH (21:19)
[2020-09-17] MEDS: ROSUVASTATIN CALCIUM 10 MG TABLET PO SCH (21:19)
[2020-09-17] MEDS: hydrALAZINE HCL 20 MG/ML VIAL IV PRN (21:20)
[2020-09-17] MEDS: QUEtiapine FUMARATE 25 MG TABLET PO SCH (21:20)
[2020-09-17] MEDS: INSULIN GLARGINE,HUM.REC.ANLOG 100 UNITS/ML VIAL SC SCH (21:21)
--- NOTE | 2020-09-17 22:04 | PN ---
Subjective - Date and Time Seen Date: 09/17/20 Time: 15:53 Subjective Narrative: She is resting comfortably, no concerns. Breathing easier, still requiring oxygen to maintains sats back back to home use. Vitals are stable and she is afebrile. Objective - Review of Systems Generalized/Overall Review: Reports: Weakness. Denies: Chills, Fever EENTM: Reports: No Symptoms Reported Respiratory: Reports: Shortness of Breath. Denies: Cough Cardiac: Reports: No Symptoms Reported Abdominal: Reports: No Symptoms Reported Genitourinary Symptoms: Reports: No Symptoms Reported Musculoskeletal Complaints: Reports: No Symptoms Reported Neurological: Reports: No Symptoms Reported Endocrine: Reports: No Symptoms Reported - Vitals Vitals: Last Vital Signs Temp 36.3 C 09/17/20 18:58 Pulse 76 09/17/20 21:20 Resp 18 09/17/20 13:52 BP 182/64 H 09/17/20 21:20 Pulse Ox 89 L 09/17/20 18:58 - Exam Constitutional: Present: Alert, Oriented x3, No distress, Morbidly obese Respiratory: Present: lungs clear, decreased breath sounds - throughout Cardiovascular/Chest: Present: regular rate, rhythm, no murmur Abdomen: Present: soft, nontender, nondistended Skin Exam: Present: normal color, warm/dry Neurologic: Present: no motor/sensory deficits Appearance: Present: appropriate appearance, appropriate insight Eye contact: Present: cooperative, good eye contact Thoughts: Present: normal thought pattern, normal mood /affect Assessment/Plan Plan Narrative: Patient is comfortable. Copd is stable. Hypoxemia is stable on home o2 settings. Patient is still weak, working with therapy currently, continue. Awaiting placement. No changes to chronic issues unless there is a change in her clinical picture. Nurse will call with questions or concerns. Patient is stable right now. - Problems/Diagnosis (1) COPD (chronic obstructive pulmonary disease) Problem: Chronic Qualifiers: COPD type: COPD with acute lower respiratory infection Qualified Code(s): J44.0 - Chronic obstructive pulmonary disease with (acute) lower respiratory infection (2) Morbid obesity Problem: Chronic (3) Essential hypertension Problem: Chronic (4) Generalized weakness Problem: Acute (5) Hypoxemia Problem: Chronic
[2020-09-18] MEDS: LEVOTHYROXINE SODIUM 125 MCG TABLET PO SCH (07:17)
[2020-09-18] MEDS: INSULIN LISPRO 100 UNITS/ML VIAL SC SCH ×5 (07:18→17:04)
[2020-09-18] MEDS: ACETAMINOPHEN 500 MG TABLET PO PRN ×2 (07:28→18:48)
[2020-09-18] MEDS: TIOTROPIUM BROMIDE 5 CAP INHALER IH SCH (08:50)
[2020-09-18] MEDS: FLUTICASONE PROPION/SALMETEROL 14 PUFF DISK.W.DEV IH SCH ×2 (08:51→21:41)
[2020-09-18] MEDS: PANTOPRAZOLE SODIUM 40 MG TABLET.EC PO SCH (08:52)
[2020-09-18] MEDS: ESCITALOPRAM OXALATE 10 MG TAB PO SCH (08:53)
[2020-09-18] MEDS: ESCITALOPRAM OXALATE 5 MG TABLET PO SCH (08:53)
[2020-09-18] MEDS: LOSARTAN POTASSIUM 50 MG TABLET PO SCH (08:54)
[2020-09-18] MEDS: ASPIRIN 81 MG TABLET.DR PO SCH (08:54)
[2020-09-18] MEDS: HYDROCHLOROTHIAZIDE 12.5 MG CAPSULE PO SCH (08:54)
[2020-09-18 09:11] LABS: Anion Gap 8.9 mmol/L (6.8-13.8); BUN/Creatinine Ratio 17.4 (9.0-21.6); Calcium * 9.5 mg/dL (7.9-10.9); Estimated Creat Clear 33.2; Potassium 3.9 mmol/L (3.4-4.6)
[2020-09-18] MEDS: NYSTATIN 15 APPL BTL TP SCH ×2 (09:55→21:17)
[2020-09-18] MEDS: amLODIPine BESYLATE 5 MG TABLET PO SCH (09:56)
[2020-09-18] MEDS: INSULIN GLARGINE,HUM.REC.ANLOG 100 UNITS/ML VIAL SC SCH (21:18)
[2020-09-18] MEDS: QUEtiapine FUMARATE 25 MG TABLET PO SCH (21:18)
[2020-09-18] MEDS: traZODone HCL 50 MG TABLET PO SCH (21:18)
[2020-09-18] MEDS: ROSUVASTATIN CALCIUM 10 MG TABLET PO SCH (21:18)
--- NOTE | 2020-09-18 21:48 | PN ---
Subjective - Date and Time Seen Date: 09/18/20 Time: 15:18 Subjective Narrative: Patient pleasant, comfortable this evening. Breathing is stable, she feels well. No acute events overnight. Patient started on amlodipine due to elevated pressures the last couple days. Objective - Review of Systems Generalized/Overall Review: Reports: Weakness. Denies: Chills, Fever EENTM: Reports: No Symptoms Reported Respiratory: Reports: Shortness of Breath. Denies: Cough Cardiac: Reports: Edema. Denies: Chest Pain, Palpitations Abdominal: Reports: No Symptoms Reported Genitourinary Symptoms: Reports: No Symptoms Reported Musculoskeletal Complaints: Reports: No Symptoms Reported Neurological: Reports: No Symptoms Reported Skin: Reports: No Symptoms Reported Endocrine: Reports: No Symptoms Reported - Vitals Vitals: Last Vital Signs Temp 37.0 C 09/18/20 21:23 Pulse 70 09/18/20 21:23 Resp 24 H 09/18/20 21:23 BP 144/48 09/18/20 21:23 Pulse Ox 93 09/18/20 21:23 - Abnormal Lab Findings Abnormal Lab Findings: Abnormal Lab Results 09/18/20 Range/Units 09:00 Sodium 143 H (132-142) mmol/L Plasma Sodium 144 H (130-142) mmol/L Carbon Dioxide 38.0 H (24-32.6) mmol/L BUN 24 H (3-23) mg/dL Est GFR (Non-Af Amer) 40 L (60-130) mL/min Random Glucose 182 H (70-110) mg/dL - Exam Constitutional: Present: Alert, Oriented x3, Obese Respiratory: Present: lungs clear, decreased breath sounds Cardiovascular/Chest: Present: regular rate, rhythm, no murmur Abdomen: Present: soft, nontender, nondistended Appearance: Present: appropriate appearance, appropriate insight Eye contact: Present: cooperative, good eye contact Thoughts: Present: normal thought pattern, normal mood /affect Assessment/Plan Plan Narrative: Her breathing is stable. Vitals are stable. Blood pressure labile but improved with the amlodipine. Will increase to 10 mg though as she is still having elevated readings. Otherwise she is doing well, plan is to discharge her to a nursing facility tomorrow morning. Nurse will call with questions or concerns. - Problems/Diagnosis (1) COPD (chronic obstructive pulmonary disease) Problem: Chronic Qualifiers: COPD type: COPD with acute lower respiratory infection Qualified Code(s): J44.0 - Chronic obstructive pulmonary disease with (acute) lower respiratory infection (2) Morbid obesity Problem: Chronic (3) Essential hypertension Problem: Chronic (4) Generalized weakness Problem: Acute (5) Hypoxemia Problem: Chronic
[2020-09-19] MEDS: INSULIN LISPRO 100 UNITS/ML VIAL SC SCH ×2 (07:15→07:16)
[2020-09-19] MEDS: LEVOTHYROXINE SODIUM 125 MCG TABLET PO SCH (07:16)
[2020-09-19] MEDS: ACETAMINOPHEN 500 MG TABLET PO PRN (07:51)
[2020-09-19] MEDS: hydrALAZINE HCL 20 MG/ML VIAL IV PRN (07:51)
[2020-09-19] MEDS: ASPIRIN 81 MG TABLET.DR PO SCH (09:25)
[2020-09-19] MEDS: ESCITALOPRAM OXALATE 10 MG TAB PO SCH (09:26)
[2020-09-19] MEDS: ESCITALOPRAM OXALATE 5 MG TABLET PO SCH (09:26)
[2020-09-19] MEDS: FLUTICASONE PROPION/SALMETEROL 14 PUFF DISK.W.DEV IH SCH (09:28)
[2020-09-19] MEDS: PANTOPRAZOLE SODIUM 40 MG TABLET.EC PO SCH (09:28)
[2020-09-19] MEDS: amLODIPine BESYLATE 5 MG TABLET PO SCH (09:30)
[2020-09-19] MEDS: HYDROCHLOROTHIAZIDE 12.5 MG CAPSULE PO SCH (09:31)
[2020-09-19] MEDS: LOSARTAN POTASSIUM 50 MG TABLET PO SCH (09:32)
[2020-09-19] MEDS: NYSTATIN 15 APPL BTL TP SCH (09:32)
[2020-09-19] MEDS: TIOTROPIUM BROMIDE 5 CAP INHALER IH SCH (09:39)
--- NOTE | 2020-09-19 10:14 | DS ---
(1) COPD (chronic obstructive pulmonary disease) Problem: Chronic Qualifiers: COPD type: COPD with acute lower respiratory infection Qualified Code(s): J44.0 - Chronic obstructive pulmonary disease with (acute) lower respiratory infection (2) Morbid obesity Problem: Chronic (3) Essential hypertension Problem: Chronic (4) Generalized weakness Problem: Acute (5) Hypoxemia Problem: Chronic Date of Discharge:: 09/19/20 Hospital Course: 74-year-old female with history of COPD admitted to the hospital due to shortness of breath, generalized weakness, frequent falls that has been progressively worsening over the last few months. Patient felt that she was unable to care for self and was a risk for injury. Patient since being here has stabilized, breathing has improved, she is back on her home oxygen requirement. Vital signs been stable though she is been slightly hypertensive. Recently started her on amlodipine which can be increased if her blood pressures continue to run high at her new [facility] facility. Currently on 5 mg. Otherwise no changes to her chronic medications were made aside from stopping her benzo as I do not think this is appropriate due to her weakness and fall risk. She does have history of anxiety though and if the providers taken over her care feels that this is necessary then they can make that decision. Otherwise her lab work here has been unremarkable. All imaging of her hips, low back, thoracic spine were negative for any acute pathology. She does have osteoarthritis seen throughout though. Patient is discharged in stable condition. She will be started on consistent carbohydrate diet. Activity as tolerated. Recommend she continue with physical therapy. Procedures Performed: none Results and Findings: Lab Pending Results 09/13/20 17:30: WBC 11.2 H, RBC 3.79 L, Hgb 10.4 L, Hct 37.1, MCV 97.9, MCH 27.4, MCHC 28.0 L, RDW 15.8 H, Plt Count 250, MPV 10.2, Immature Gran % (Auto) 0.40, Immature Gran # (Auto) 0.05 H, Neutrophils % 77.5 H, Lymphocytes % 11.5 L, Monocytes % 8.8, Eosinophils % 1.4, Basophils % 0.4, Nucleated RBC % 0.0, Neutrophils # 8.7 H, Lymphocytes # 1.29 L, Monocytes # 1.0, Eosinophils # 0.2, Absolute Basophils 0.0 09/13/20 17:30: Sodium 143 H, Plasma Sodium 146 H, Potassium 5.1 H D, Chloride 102, Carbon Dioxide 41.2 H, Anion Gap 4.9 L, BUN 37 H, Creatinine 1.47 H, Est GFR (Non-Af Amer) 37 L, BUN/Creatinine Ratio 25.2 H, Random Glucose 262 H, Calcium 8.6, Calcium Adj for Albumin 9.3, Total Bilirubin 0.3, AST 24, ALT 22, Alkaline Phosphatase 103, Total Protein 7.3, Albumin 2.7 L 09/13/20 18:22: Urine Color Yellow, Urine Appearance Clear, Urine pH 6.0, Ur Specific [place] 1.025, Urine Protein 30 H, Urine Glucose (UA) Negative, Urine Ketones Negative, Urine Blood 5 H, Urine Nitrate Negative, Urine Bilirubin Negative, Urine Urobilinogen Normal, Ur Leukocyte Esterase Negative, Urine RBC 0-5, Urine WBC 0-5, Ur Epithelial Cells 0-5, Urine Bacteria Trace, Urine Culture Comments Culture to follow 09/13/20 18:28: SARS-CoV-2 (PCR) Not detected 09/14/20 06:45: Sodium 143 H, Plasma Sodium 144 H, Potassium 4.9 H, Chloride 101, Carbon Dioxide 38.4 H, Anion Gap 8.5, BUN 32 H, Creatinine 1.40, Est GFR (Non-Af Amer) 39 L, BUN/Creatinine Ratio 22.9 H, Random Glucose 172 H D, Calcium 9.2 09/18/20 09:00: Sodium 143 H, Plasma Sodium 144 H, Potassium 3.9 D, Chloride 100, Carbon Dioxide 38.0 H, Anion Gap 8.9, BUN 24 H, Creatinine 1.38, Est GFR (Non-Af Amer) 40 L, BUN/Creatinine Ratio 17.4, Random Glucose 182 H, Calcium 9.5 Discharge Location: Other - [facility] Disposition: Intermediate Care Facility I[facility] Condition: Fair Level of Care: ICF Discharge Activity: Activity as tolerated Discharge Diet: Consistent carbs Care Home Therapy: Physical Therapy Additional Patient Instructions (free text): [facility]- [facility]. Please fax discharge orders, medications, and thuy l report. Home oxygen at 2 L nasal cannula continuous during the day and [employer] at night with 3 L oxygen. Prescriptions (Any new or edited meds): amLODIPine BESYLATE [Norvasc] 5 mg PO DAILY #30 tab Transmission Status: Pending to [facility] [place] Complete Home Medications List: Complete Home Medication List: Durable Medical Equipment See Dose Instructions .ROUTE .MEDSUPPLY #1 ea 02/02/19 blood sugar diagnostic See Rx Instructions .ROUTE .MEDSUPPLY #100 ea 08/12/19 lancets 30 gauge See Rx Instructions .ROUTE .MEDSUPPLY #100 ea 08/17/19 pen needle, diabetic 31 gauge x 01/27" See Dose Instructions .ROUTE .MEDSUPPLY #100 ea 08/19/19 Acetaminophen 500 mg PO Q6H PRN #120 tab 03/14/20 Albuterol Sulfate [Albuterol Sulfate Hfa] 8.5 gm INHALATION Q4H PRN #1 03/14/20 Aspirin [Aspirin EC] 81 mg PO DAILY #100 03/14/20 Mecobalamin [B-12] 5,000 mcg PO DAILY #100 tab 03/14/20 Nystatin 1 ea MC TID #1 bottle 03/14/20 Nystatin [Mycostatin Powder] 1 appl TOPICAL BID #1 btl 03/14/20 blood sugar diagnostic See Rx Instructions .ROUTE .MEDSUPPLY #10 ea 04/12/20 blood-glucose meter See Rx Instructions .ROUTE .MEDSUPPLY #1 ea 04/12/20 lancets 32 gauge See Rx Instructions .ROUTE .MEDSUPPLY #100 ea 04/12/20 budesonide-formoterol HFA 160 mcg-4.5 mcg/actuation aerosol inhaler 2 puff INHALATION BID #10.2 g 09/04/20 escitalopram oxalate 5 mg tablet 5 mg PO DAILY #30 tab 09/04/20 ferrous sulfate 324 mg (65 mg iron) tablet,delayed release 325 mg PO DAILY #30 tab 09/04/20 hydrochlorothiazide 12.5 mg tablet 12.5 mg PO DAILY #30 tab 09/04/20 irbesartan 150 mg tablet 150 mg PO DAILY #30 tab 09/04/20 levothyroxine 125 mcg capsule 125 mcg PO DAILY #90 cap 09/04/20 nebivolol 10 mg tablet 10 mg PO DAILY #30 tab 09/04/20 pantoprazole 40 mg tablet,delayed release 40 mg PO DAILY #30 tab 09/04/20 quetiapine 25 mg tablet 25 mg PO HS #30 tab 09/04/20 rosuvastatin 10 mg tablet 10 mg PO DAILY #30 tab 09/04/20 tiotropium bromide 18 mcg capsule with inhalation device 1 cap INHALATION DAILY #1 inhaler 09/04/20 trazodone 50 mg tablet 50 mg PO HS #30 tab 09/04/20 Alprazolam 1 mg PO DAILY PRN 09/13/20 Escitalopram Oxalate [Lexapro] 20 mg PO DAILY 09/13/20 Insulin Aspart [Insulin Aspart Flexpen] 24 unit SUBCUT BIDWM 09/13/20 Silver Sulfadiazine [Silvadene] 1 appl TP BID 09/14/20 amLODIPine BESYLATE [Norvasc] 5 mg PO DAILY #30 tab 09/19/20 Forms: Patient Portal Registration
[2020-09-19 12:45] VITALS: BP 144/70
== END 2020-09-19 12:28 ==
LOC: ER 17:00 → MS 19:44 → INTOOBSV 19:44 → MS 20:05
PROVIDERS: ADMIT Family Medicine; ATTEND Family Medicine
DX: Z99.81 Dependence on supplemental oxygen; R53.1 Weakness; E11.22 Type 2 diabetes mellitus with diabetic chronic kidney disease; Z87.891 Personal history of nicotine dependence; M25.551 Pain in right hip; N18.30 Chronic kidney disease, stage 3 unspecified; M54.5 Low back pain; Z79.4 Long term (current) use of insulin; I12.9 Hypertensive chronic kidney disease with stage 1 through stage 4 chronic kidney disease, or unspecified chronic kidney disease; W19.XXXA Unspecified fall, initial encounter; J44.9 Chronic obstructive pulmonary disease, unspecified; Z23 Encounter for immunization; F41.9 Anxiety disorder, unspecified; E03.9 Hypothyroidism, unspecified; Z91.81 History of falling